=== PATIENT | male | born 1960 | race Caucasian/White ===

== ENCOUNTER 2019-02-04 04:22 | Emergency (ER) | payer OTHER ==
[~2019-02-04] VITALS: Ht 188 cm; Wt 111.3 kg
[2019-02-04] MEDS ORDERED: MOTR200T44 PO (04:44)
[2019-02-04] MEDS ORDERED: TYLE650T35 PO (04:44)
[2019-02-04] MEDS ORDERED: METOCLOPRAMIDE INJ 10MG/2ML VIAL (J2765) IV ONE (04:45)
[2019-02-04] MEDS ORDERED: NS 500 ML IV ONE (04:45)
[2019-02-04] MEDS ORDERED: MORPHINE 10 MG/ML 1ML VIAL (J2270) IV ONE (04:45)
[2019-02-04] MEDS ORDERED: MORPHINE 4 MG/ML 1ML VIAL/SYRINGE (J2270) IV ONE (05:45)
--- NOTE | 2019-02-04 06:13 | REP ---
Clinical: Trauma. Technique: Single AP view of the pelvis. Findings: Evidence of prior right hip replacement. Degenerative changes are appreciated. No acute fracture or dislocation. Impression: Degenerative changes without acute fracture or dislocation. Electronically Signed by Austin Wan MD 02/04/2019 06:04 A
[2019-02-04] MEDS ORDERED: NORCO 5/325MG TABLET (BULK FOR ED) PO ONE (06:15)
--- NOTE | 2019-02-04 06:15 | REP ---
Clinical: Trauma. Technique: AP, lateral, bilateral oblique views of the right knee. Findings: Evidence for prior replacement. Diffuse soft tissue swelling and suprapatellar effusion are identified. Subtle nondisplaced fracture involving the distal femoral metaphysis cannot be excluded. Impression: Swelling and effusion. Subtle nondisplaced femoral metaphyseal fracture cannot be excluded. Electronically Signed by Austin Wan MD 02/04/2019 06:06 A
[2019-02-04] MEDS ORDERED: ONDANSETRON 4 MG ORAL DISINTEGRATING TAB (Q0162 PER 1MG) As Ordered ONE (06:43)
[2019-02-04 06:45] VITALS: BP 147/82
[2019-02-04] MEDS ORDERED: ONDANSETRON 4 MG ORAL DISINTEGRATING TAB (Q0162 PER 1MG) PO ONE (06:45)
== END 2019-02-04 06:58 | disposition home or self-care (01) ==
LOC: EDBD 04:22 → M ED 04:22
DX: S72.424 Nondisplaced fracture of lateral condyle of right femur (principal); S72.434A Nondisplaced fracture of medial condyle of right femur, initial encounter for closed fracture; W01.0XXA Fall on same level from slipping, tripping and stumbling without subsequent striking against object, initial encounter; Y92.009 Unspecified place in unspecified non-institutional (private) residence as the place of occurrence of the external cause; M25.551 Pain in right hip; G89.29 Other chronic pain; I10 Essential (primary) hypertension; Z96.641 Presence of right artificial hip joint; Z98.890 Other specified postprocedural states
CPT/HCPCS: 72170; 73564; 96374; 96375; 99284; J2270; J2765; Q0162

== ENCOUNTER 2019-03-07 13:42 | Emergency (ER) | payer OTHER ==
[~2019-03-07] VITALS: Ht 188 cm; Wt 106.8 kg
[~2019-03-07 13:42] MED LIST: MOTR200T44 PO; TYLE650T35 PO
[2019-03-07 14:54] LABS: HEMATOCRIT 25.8 % (42.0-52.0); HEMOGLOBIN 7.9 g/dl (13.5-17.5); MEAN CORPUSCULAR HEMOGLOBIN 26.4 pg (27.0-33.0); MEAN CORPUSCULAR HGB CONC 30.6 g/dl (32.0-36.5); MEAN CORPUSCULAR VOLUME 86.3 fl (80.0-96.0); PLATELET COUNT, AUTOMATED 241 10^3/uL (150-450); RED BLOOD COUNT 2.99 10^6/uL (4.30-6.10); WHITE BLOOD COUNT 4.6 10^3/uL (4.0-10.0)
[2019-03-07 15:31] LABS: ALBUMIN 3.7 GM/DL (3.2-5.2); ALT/SGPT 60 U/L (12-78); BILIRUBIN,TOTAL 0.3 MG/DL (0.2-1.0); BLOOD UREA NITROGEN 23 MG/DL (7-18); CALCIUM LEVEL 8.9 MG/DL (8.5-10.1); CARBON DIOXIDE LEVEL 26 MEQ/L (21-32); CHLORIDE LEVEL 103 MEQ/L (98-107); CPK CREATINE PHOSPHOKINASE 131 U/L (39-308); ETHYL ALCOHOL (ETHANOL) 0.329 % (0.000-0.010); GLOMERULAR FILTRATION RATE > 60.0 (>56); GLUCOSE, FASTING 95 MG/DL (70-100); POTASSIUM SERUM 4.2 MEQ/L (3.5-5.1); SODIUM LEVEL 139 MEQ/L (136-145); TOTAL PROTEIN 6.7 GM/DL (6.4-8.2)
--- NOTE | 2019-03-07 15:52 | REP ---
RIGHT KNEE, FOUR VIEWS: Four views of the right knee performed. There is a nondisplaced fracture of the distal end of the femur just above the metallic prosthesis. This has not significantly changed. Proximal tibia and fibula are intact. There are no other new findings. Electronically Signed by Yaniv Davila MD 03/07/2019 06:20 P
[2019-03-07 16:31] LABS: FERRITIN 54 NG/ML (26-388); IRON (FE) 13 UG/DL (65-175); PERCENT SATURATION 3.1 % (19.7-50.0); TOTAL IRON BINDING CAPACITY 415 UG/DL (250-450)
[2019-03-07 16:38] LABS: VITAMIN B12 LEVEL 418 PG/ML (247-911)
[2019-03-07] MEDS ORDERED: OXAZEPAM 10 MG CAP PO ONE (20:15)
[2019-03-07 22:00] VITALS: BP 112/62
== END 2019-03-07 22:00 | disposition home or self-care (01) ==
LOC: M ED 13:42
DX: S72.401A Unspecified fracture of lower end of right femur, initial encounter for closed fracture (principal); X58.XXXA Exposure to other specified factors, initial encounter; Y92.89 Other specified places as the place of occurrence of the external cause; F10.220 Alcohol dependence with intoxication, uncomplicated; Z59.0 Homelessness; Z96.641 Presence of right artificial hip joint
CPT/HCPCS: 73564; 80053; 82550; 82607; 82728; 83550; 85027; 99284; G0480

== ENCOUNTER 2019-03-08 08:05 | Inpatient (IN) | payer OTHER ==
[~2019-03-08] VITALS: Ht 188 cm; Wt 110.8 kg
[2019-03-08] MEDS ORDERED: OXAZEPAM 15 MG CAP PO ONE (08:30)
[2019-03-08 08:51] LABS: HEMATOCRIT 23.9 % (42.0-52.0); HEMOGLOBIN 7.4 g/dl (13.5-17.5); MEAN CORPUSCULAR HEMOGLOBIN 26.4 pg (27.0-33.0); MEAN CORPUSCULAR VOLUME 85.4 fl (80.0-96.0); PLATELET COUNT, AUTOMATED 252 10^3/uL (150-450); WHITE BLOOD COUNT 6.3 10^3/uL (4.0-10.0)
[2019-03-08 08:57] LABS: INR 1.07
[2019-03-08 09:18] LABS: ALBUMIN 3.5 GM/DL (3.2-5.2); ALT/SGPT 55 U/L (12-78); BILIRUBIN,DIRECT 0.2 MG/DL (0.0-0.2); BILIRUBIN,TOTAL 0.7 MG/DL (0.2-1.0); BLOOD UREA NITROGEN 26 MG/DL (7-18); CALCIUM LEVEL 8.9 MG/DL (8.5-10.1); CARBON DIOXIDE LEVEL 23 MEQ/L (21-32); CHLORIDE LEVEL 102 MEQ/L (98-107); CREATININE FOR GFR 1.09 MG/DL (0.70-1.30); ETHYL ALCOHOL (ETHANOL) < 0.003 % (0.000-0.010); GLOMERULAR FILTRATION RATE > 60.0 (>56); GLUCOSE, FASTING 224 MG/DL (70-100); SODIUM LEVEL 137 MEQ/L (136-145); TOTAL PROTEIN 6.5 GM/DL (6.4-8.2)
[2019-03-08] MEDS ORDERED: PANTOPRAZOLE 40MG INJ (PROTONIX) (C9113) IV ONE (12:30)
[2019-03-08] MEDS ORDERED: LORazepam 2 MG TAB PO PRN (13:15)
[2019-03-08] MEDS ORDERED: GLUCAGON FOR INJ 1 MG VIAL (J1610) SC PRN (13:15)
[2019-03-08] MEDS ORDERED: GLUCOSE 4 GM CHEW TABLET PO PRN (13:15)
[2019-03-08] MEDS ORDERED: DEXTROSE 50% 50 ML SYRINGE IV PRN (13:15)
[2019-03-08] MEDS: PANTOPRAZOLE SODIUM 40 MG in D5W 50 ML IV SCH ×3 (13:27→21:30)
[2019-03-08 13:33] LABS: MAGNESIUM LEVEL 1.6 MG/DL (1.8-2.4); PHOSPHORUS LEVEL 2.9 MG/DL (2.5-4.9)
[2019-03-08 16:00] VITALS: BP 150/62
[2019-03-08 16:25] VITALS: BP 150/62
[2019-03-08] MEDS: FOLIC ACID 1 MG TAB PO SCH (16:46)
[2019-03-08] MEDS: THIAMINE 100 MG TAB PO SCH ×2 (16:46→20:06)
[2019-03-08] MEDS: MAG SULF 1GM/100ML (MAG RUN) 1 GM in APPROPRIATE DILUENT 1 EA IV SCH ×2 (16:47→17:59)
[2019-03-08] MEDS: MULTIVITAMINS/MINERALS THERAP 1 TAB PO SCH (16:47)
[2019-03-08 16:50] VITALS: BP 150/62
[2019-03-08] MEDS: HumaLOG INSULIN (NovoLOG) PER UNIT SC SCH ×2 (17:30→20:13)
[2019-03-08] MEDS ORDERED: GOLYTELY SOLN 4000 ML BTL PO ONE (18:00)
[2019-03-08] MEDS: OXAZEPAM 10 MG CAP PO SCH (18:00)
[2019-03-08 20:00] VITALS: BP 140/83
[2019-03-08] MEDS ORDERED: BISACODYL 5 MG TAB PO ONE (21:00)
--- NOTE | 2019-03-08 22:07 | HPE ---
DATE OF ADMISSION: 03/08/2019 PRIMARY CARE PROVIDER: None. HISTORY OF PRESENT ILLNESS: Mr. Mcdonnell is a 58-year-old male who has not seen a physician in over 30 years. He is a severe alcoholic and drinks 10 to 15 shots of vodka each day since the age of 19. He was most recently seen in the emergency room yesterday for severe right knee pain from a recent fall from when he was intoxicated. He does have a history of a hairline fracture in that knee, for which he follows with Dr. Wang and has a brace and is supposed to see him in the office again for a followup on 03/14/2019. In the emergency room yesterday, he was found to have a blood alcohol level of 0.33, and he was concerned that he was homeless. Patient and family services (PFS) at that point helped get him housing at the [facility]; however, he returned today to the emergency room with complaint of alcohol withdrawal symptoms. He states that he felt dizzy and shaky with nausea, weakness and racing heart as of today. He says that his last drink was yesterday morning. Blood alcohol level on today's emergency room visit is negligible and confirms this. He states that he has had delirium tremens in the past; however, has never been in withdrawal as severe as this. In the emergency room, of note, he was also found to have a hemoglobin of 7.9 yesterday, 7.4 today. He admits to dark, tarry stools over the past couple of months, which he did not followup with. We have no previous records. He was found to have positive fecal occult blood in the emergency room and positive orthostatics. As per emergency room staff, they have spoken with gastroenterology, Dr. Emerson, who will plan to scope him tomorrow to find a source of bleed. At the time of admission, the patient has thus far received one dose of Serax and is started on Protonix drip and continues to be tachycardic in the 110s to 120s but has no other complaints otherwise. PAST MEDICAL HISTORY: None. HOME MEDICATIONS: - ibuprofen - Tylenol as needed for pain from recent hip and knee surgeries SURGICAL HISTORY: Right hip repair times three in [facility], appendectomy, cholecystectomy, right prosthetic knee. ALLERGIES: None. SOCIAL HISTORY: Alcoholic with 10 to 15 shots of vodka per day since age 19, one pack per day cigarettes since age 20. Denies all other illicit substances. 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 FAMILY HISTORY: Grandmother had a myocardial infarction and lung cancer. Father and mother were healthy. Denies any family history of gastrointestinal illnesses. REVIEW OF SYSTEMS: Denies any recent fevers, chills, or weight loss. HEENT: Denies eye pain, ear pain, blurred vision, or headache. CARDIOVASCULAR: Admits to racing heart and palpitations from recent withdrawal. Denies any lower extremity swelling. PULMONARY: Denies any coughing, wheezing, shortness of breath. GASTROINTESTINAL: Admits to some nausea from recent withdrawal. Denies vomiting. Admits to black dark tarry stools for the past couple of months. Denies any constipation or diarrhea. SKIN: Denies any new rashes, bruises or lesions. MUSCULOSKELETAL: Admits to right knee and right hip pain from recent injuries and surgeries. Denies pain elsewhere. NEUROLOGIC: Denies any new paresthesias or loss of sensation. PSYCHIATRIC: Admits to anxiety and tremor from alcohol withdrawal. PHYSICAL EXAMINATION: VITAL SIGNS: Temperature 99.9, pulse 109, respirations 17, blood pressure 142/74, mean arterial pressure of 96, pulse oximetry 98% on room air. GENERAL: The patient is resting in bed, mildly anxious. Alert and oriented times three. Fully conversant. HEENT: Normocephalic, atraumatic. Extraocular muscles intact. Pupils are equal, round and reactive to light. Pale conjunctivae. Dry mucous membranes. NECK: Supple. No jugular venous distention (JVD) and no adenopathy. CARDIAC: Regular rhythm. Rate is tachycardic in the 110s to 120s. In sinus on telemetry. Normal S1, S2 without any murmurs. LUNGS: Clear to auscultation bilaterally with equal chest rise. No wheezing, rhonchi or rales. ABDOMEN: Soft, nontender, nondistended with positive bowel sounds. No appreciable hepatosplenomegaly. No appreciable spider nevi or palmar erythema. SKIN: No visible lesions or ulcerations. No jaundice. MUSCULOSKELETAL: Strength 5/5 throughout bilateral upper extremities. The right lower extremity is in a brace from his recent fracture, for which he is following with orthopedics. NEUROLOGIC: He has bilateral asterixis. Otherwise, without any focal deficits. No loss of motor sensation. PSYCHIATRIC: He is mildly anxious but otherwise fully communicative. LABORATORIES: WBC 6.3, hemoglobin and hematocrit 7.4/23.9, platelets 252. Sodium and potassium 137 and 4. Chloride and bicarbonate 102 and 23. BUN and creatinine 26 and 1.09. Magnesium 1.6. AST and ALT 65 and 55. Alkaline phosphatase 98. PT/INR normal. Blood alcohol level is less than 0.003. No imaging. IMPRESSION AND PLAN: This is a 58-year-old male, alcoholic, who presents to the emergency room with symptoms of alcohol withdrawal. 1. Alcohol withdrawal. The patient has asterixis on examination and is tachycardic in the 120s. Last drink was five to six shots of vodka yesterday morning on 03/07/2019. His blood alcohol level confirms this. Continue on Clinical [place] Withdrawal Assessment (CIWA) protocol and baseline Serax for today, which we will taper down as he improves. He denies any previous history of withdrawal seizures but does have a history of delirium tremens in the past, however, he states that he has never been this bad. He has been counseled on alcohol cessation and will be placed on multivitamin, folate, thiamine. 2. Transaminitis. AST is 65 and ALT 55 on admission, likely related to the above. We will continue to trend tomorrow. May also be due to the significant amount of Tylenol that he has been taking recently for his pain. Otherwise, his albumin and coag panel are normal. 3. Acute blood loss anemia. Hemoglobin has dropped from 7.9 yesterday to 7.4 today. The patient reports melanotic stools over the past couple of months. Given his history of alcohol abuse, there is concern for possible varices. Given that he has been taking ibuprofen around the clock over the past couple of days for his knee and hip pain, differential also includes peptic ulcer disease. GI has been consulted, appreciate their input. Plan is for scope possibly tomorrow. The patient has consented for blood transfusion, which he has received in the past as well. He will currently get 2 units transfused and trend hemoglobin and hematocrit every 6 hours, transfuse as needed to maintain a hemoglobin above 8. 4. Social living situation. The patient is homeless. Patient and family services (PFS) helped him find temporary placement at the [facility]. Patient and family services has been consulted again to assist with more long-term placement. 5. Hypomagnesemia. We will supplement. 6. Positive orthostasis. The patient reportedly was positive in the emergency room and appears clinically dry on examination. We will continue with IV fluid hydration. He admits to having decreased oral intake over the past couple of days. Continue monitoring with volume resuscitation. 7. Deep vein thrombosis (DVT) prophylaxis. Thromboembolic compression stockings (TEDS), SCDs. Hold anticoagulation given active bleed. DISPOSITION: We will admit to the hospitalist service, awaiting GI consultation. The patient will require establishment with a primary care provider on discharge. My faculty preceptor for this patient encounter was physically present during the encounter and was fully available. All aspects of the patient interview, examination, medical decision making process, and medical care plan development were reviewed and approved by the faculty preceptor. The faculty preceptor is aware and concurs with the plan as stated in the body of this note and will attest to such by his/her co-signature. GUS
[2019-03-08] MEDS: traMADol 50 MG TAB PO PRN (23:01)
--- NOTE | 2019-03-08 23:03 | CR.PDOC ---
General Date of Consultation: Mar 08, 2019 Referring Provider: Elio Madrigal MD Attending Physician: CHRISTOPHER NAGEL MD Consultation Primary physician/ hospitalist: Dr. Madrigal. Reason for consult: symptomatic anemia with dark stools. HPI: 58 year old male patient with right knee fracture, ( taking Ibuprofen regularly). chronic heavy alcohol use, presented to ER for complaints of withdr awal symptoms and also having lightheadedness and feeling weak. Patient is noted with severe anemia on labs and GI was consulted for the same. Patient reports having dark formed stools over the last few weeks, but denies any bight red bleeding or diarrheal stools. Patient also reports feling nauseous but denies any other GI symptoms. Patient reports his last bowel movement was today morning. Pertinent negative GI symptoms: Patient denies vomiting, diarrhea, abdominal pain, loss of appetite, early satiety or unintentional weight loss. No history of hematemesis, hematochezia. Patient reports regular bowel movements. Review of Systems: GI: as stated above CVS: No chest pain, No palpitations, No leg swelling. RS: No Shortness of breath, No Wheezing, no cough CUSTOMER SUPPORT REPRESENTATIVE: No dizziness, No motor weakness, No sensory problems Hematology: No bruising, No gum bleeding, Musculoskeletal: No joint pain, ambulating well. Skin: No rash : No hematuria, No burning sensation of the urine ENT: No ear discharge/ pain, No dysphagia. Eyes: No photophobia. Home medications: reviewed. Antithrombotic agents - None. Medical h/o: As above. Surgical h/o: Appendectomy and cholecystectomy in past. Social h/o: Alcohol- Heavy alcohol use with upto 10 - 15 drinks daily and for past few days he decreased to 6 drinks per day and started noticing tremors , tobacco- Denies , IVDA/ drugs- Denies.. Family h/o of GI cancers - Denies any cancer in family but reports his father had colon polyps. Prior Endoscopies: None. Prior GI evaluation: None in past. Exam: Vitals: reviewed General: Alert and oriented x 3, not in distress, noted mild to moderate tremulousness. HEENT: NO pallor, no icterus. Normal oropharynx, NO cervical lymph nodes. Chest: symmetric with bilateral clear air entry, CVS: S1, S2 heard, normal, no murmurs . Abdomen: non-distended, no surgical scars, soft, non-tender, no palpable masses, normal bowel sounds heard. Rectal exam: Patient refused / Deferred at this time in view of scheduled colonoscopy. Extremities: no pedal edema, right leg brace noted. pulses palpable. CUSTOMER SUPPORT REPRESENTATIVE: no focal motor or sensory deficits. Moves all extremities Skin: no rash. Labs: reviewed. Impression: - Symptomatic anemia with dark stools, history of NSAIDs use and heavy alcohol use, but no vomiting of blood, no diarrheal stools, no abdominal pain -- DDx-- LIkely PUD vs AVM vs Colon polyps vs less likely variceal bleeding. -- History of heavy alcohol use with tremulousness -- Monitor for alcohol withdrawal. Recommendations: - Patient educated about the test results, possible differential diagnoses and All questions answered. - Monitor H/H and transfuse as needed to keep hemoglobin around 8gm/dL. - Give IV Pantoprazole ( 40 mg twice daily) for now. - Management for Alcohol withdrawal as per primary team. - Clear liquid diet. - Patient is educated about the need for EGD and Colonoscopy for further evaluation. - The procedures, indications, risks (bleeding, perforation, infection, hy potension, respiratory depression, allergy, need for endotracheal intubation, surgery, colostomy, cardiac arrest, even ), benefits, limitations (e.g., missing a lesion), and all other alternatives (including no intervention) were explained to the patient who understood and agreed for the procedures. Patient also educated that if he develops severe symptoms of alcohol withdrawal then his procedures can be cancelled. - Bowel prep with 4 liters of golytely - to be started at 5PM today and complete by 7 AM tomorrow. - Dulcolax 20 mg at 9 PM. - Clear liquid diet till 7 AM and then NPO for procedure. Plan of care discussed with patient and primary team. Patient verbalized understanding and agreed with the plan. Laboratory Data CBC/BMP Laboratory Tests 03/08/19 08:31 Allergies Coded Allergies: No Known Allergies (Unverified , 02/04/19) Home Medications Scheduled PRN Acetaminophen (Tylenol Arthritis) 650 Mg Tab, 650 MG PO Q4H PRN for PAIN, (Reported) Ibuprofen (Motrin Ib) 200 Mg Tab, 800 MG PO Q6H PRN for PAIN, (Reported) CHRISTOPHER NAGEL MD Mar 08, 2019 23:03
[2019-03-09] VITALS (15 sets, daily range): BP systolic 108–156; BP diastolic 58–87
[2019-03-09] MEDS: D5W/0.45% SODIUM CHLORIDE 1,000 ML IV SCH ×3 (00:01→16:06)
[2019-03-09] MEDS: OXAZEPAM 10 MG CAP PO SCH ×5 (00:06→23:51)
[2019-03-09 02:29] LABS: HEMATOCRIT 27.4 % (42.0-52.0); HEMOGLOBIN 8.5 g/dl (13.5-17.5)
[2019-03-09] MEDS: PANTOPRAZOLE SODIUM 40 MG in D5W 50 ML IV SCH ×4 (02:30→16:05)
[2019-03-09 06:43] LABS: HEMATOCRIT 25.3 % (42.0-52.0); MEAN CORPUSCULAR HEMOGLOBIN 26.5 pg (27.0-33.0); MEAN CORPUSCULAR HGB CONC 31.6 g/dl (32.0-36.5); MEAN CORPUSCULAR VOLUME 83.8 fl (80.0-96.0); PLATELET COUNT, AUTOMATED 203 10^3/uL (150-450); RED BLOOD COUNT 3.02 10^6/uL (4.30-6.10); WHITE BLOOD COUNT 5.2 10^3/uL (4.0-10.0)
[2019-03-09 07:14] LABS: ALBUMIN 3.2 GM/DL (3.2-5.2); ALT/SGPT 73 U/L (12-78); BILIRUBIN,TOTAL 0.8 MG/DL (0.2-1.0); BLOOD UREA NITROGEN 15 MG/DL (7-18); CALCIUM LEVEL 8.4 MG/DL (8.5-10.1); CARBON DIOXIDE LEVEL 28 MEQ/L (21-32); CHLORIDE LEVEL 101 MEQ/L (98-107); CREATININE FOR GFR 0.89 MG/DL (0.70-1.30); GLOMERULAR FILTRATION RATE > 60.0 (>56); GLUCOSE, FASTING 136 MG/DL (70-100); MAGNESIUM LEVEL 1.9 MG/DL (1.8-2.4); POTASSIUM SERUM 3.3 MEQ/L (3.5-5.1); SODIUM LEVEL 137 MEQ/L (136-145); TOTAL PROTEIN 6.5 GM/DL (6.4-8.2)
[2019-03-09] MEDS: HumaLOG INSULIN (NovoLOG) PER UNIT SC SCH ×4 (07:30→20:19)
[2019-03-09] MEDS: FOLIC ACID 1 MG TAB PO SCH (09:51)
[2019-03-09] MEDS: THIAMINE 100 MG TAB PO SCH ×2 (09:51→20:18)
[2019-03-09] MEDS: MULTIVITAMINS/MINERALS THERAP 1 TAB PO SCH (09:51)
[2019-03-09] MEDS: KCL 10MEQ/100ML SWI (KRUN) 10 MEQ in APPROPRIATE DILUENT 1 EA IV SCH ×3 (09:52→16:18)
--- NOTE | 2019-03-09 11:03 | IPN ---
DATE: 03/09/2019 SUBJECTIVE: The patient is examined at bedside. Has no new complaints. No reported events overnight. He feels better today than he did when he came in. He feels less anxious. Heart rate is no longer tachycardic. No events on telemetry. He states he had multiple bowel movements overnight with bowel regimen as he is scheduled to undergo an esophagogastroduodenoscopy and colonoscopy today with Dr. Emerson. He states his initial stools were dark brown but now have cleared. Denies any acute bleeding currently in his stool. Otherwise, he is doing well. He underwent transfusion of two units of blood yesterday, which he tolerated well. PHYSICAL EXAMINATION: VITALS: Temperature 98.4, pulse 76, respirations 19, blood pressure 118/50, map 98, pulse ox 90% on room air. GENERAL: Resting comfortably in bed. No acute distress. Alert and oriented times three, pleasantly conversant. HEENT: Normocephalic, atraumatic. Extraocular muscles intact. Pupils equal, round and reactive to light. Dry mucous membranes. NECK: Supple without any jugular venous distention (JVD). CARDIAC: Regular rate and rhythm. Normal sinus rhythm on telemetry. Normal S1, S2 without murmurs. LUNGS: Clear to auscultation bilaterally. No wheezing, rhonchi or rales. ABDOMEN: Soft, nontender, nondistended. Hyperactive bowel sounds. SKIN: No visible lesions or ulcerations. No jaundice. MUSCULOSKELETAL: Able to move all extremities. Right lower leg is in a brace from his recent fracture. NEURO: His hand tremors are improved from admission. Still present today, otherwise stable without any focal deficit. PSYCH: Normal mood and affect. No longer anxious as he was on admission. LABS: WBC 5.2, hemoglobin and hematocrit 8 and 25.3, platelets 203. Sodium 137, potassium 3.3, BUN and creatinine 15 and 0.89. AST 91, ALT 73. Stool for occult blood is heme positive IMPRESSION AND PLAN: This is a 58-year-old alcoholic male who presented to the emergency room with alcohol withdrawal symptoms and found to be severe anemic with melanotic stools over the past couple of weeks. 1. Alcoholic withdrawal: Patient is improving and no longer as tremulous and tachycardic as he was on admission. Will continue to taper his Serax and continue seizure protocol. His last drink was on the morning of 03/07/2019 when he had around six shots of vodka. Continue closely monitoring. Continue multivitamin and folate, and thiamine. 2. Transaminitis: Persists until this morning. May be secondary to his heavy alcohol use versus his heavy Tylenol use for his right knee pain. Will continue to trend. Patient has been updated regarding labs and the concern for underlying liver disease. Will further work this up if it remains elevated. Of note: His albumin and coag panel were normal. 3. Acute blood loss anemia: He initially presented with hemoglobin of 7.4 which responded well to two units of blood, which he received on admission. Repeat hemoglobin and hematocrit revealed his hemoglobin is around 8 with a mild drop this morning from 8.5 to 8.0. Will continue to trend his hemoglobin and hematocrit every 6 hours and transfused as needed to maintain around 8. He is scheduled for an EGD and colonoscopy today. Differential includes peptic ulcer disease from heavy nonsteroidal anti-inflammatory drug (NSAID) use for his right knee pain as well as possible varices versus arteriovenous malformation versus polyp. 4. Social living situation: Patient is homeless. Was recently set up by patient family services ([facility]) to temporarily remain at [facility]. [facility] is currently following. Hopefully we can find him longer-term living for him. 5. Hypomagnesemia: Resolved with supplementation. 6. Hypokalemia: Supplemented. Patient is asymptomatic. Continue monitoring. 7. Positive orthostatics: He appears dry on exam and was reported positive for orthostatics in the emergency room and will continue with IV hydration. 8. Hyperglycemia: The patient's blood sugars are noted to be high 100s to 200s. He has not followed with a primary care provider in years. A1c is currently pending. Currently on a sliding scale. 9. Deep venous thrombosis (DVT) prophylaxis: Mechanical. Hold anticoagulation due to possible acute bleed. DISPOSITION: Pending clinical improvement. Scopes today. My faculty preceptor for this patient encounter was physically present during the encounter and was fully available. All aspects of the patient interview, examination, medical decision making process, and medical care plan development were reviewed and approved by the faculty preceptor. The faculty preceptor is aware and concurs with the plan as stated in the body of this note and will attest to such by his/her co-signature. GUS
[2019-03-09 11:59] LABS: HEMATOCRIT 26.6 % (42.0-52.0); HEMOGLOBIN 8.4 g/dl (13.5-17.5)
[2019-03-09] MEDS ORDERED: PROPOFOL 200 MG/20 ML VIAL As Ordered ONE ×2 (13:05→14:41)
[2019-03-09] MEDS ORDERED: LIDOCAINE 2% INJ 100 MG/5 ML SDV (FOR ANES.) As Ordered ONE (13:05)
[2019-03-09] MEDS ORDERED: fentaNYL 100 MCG/2 ML INJECTION (J3010) As Ordered ONE (13:06)
[2019-03-09] MEDS ORDERED: MIDAZOLAM INJ 2 MG/2 ML VIAL (J2250) As Ordered ONE (14:21)
--- NOTE | 2019-03-09 15:12 | ROOR ---
Patient Name: Sergey Mcdonnell Procedure Date: 03/09/2019 2:09 PM Date of : 1960 Age: 58 Room: [facility] Gender: Male Note Status: Finalized Procedure: Upper GI endoscopy Indications: Acute post hemorrhagic anemia, Iron deficiency anemia Providers: Jerod Emerson MD Referring MD: 2. Inpatient 2. Inpatient Requesting Provider: Medicines: Monitored Anesthesia Care Complications: No immediate complications. Procedure: Pre-Anesthesia Assessment: - Prior to the procedure, a History and Physical was performed, and patient medications and allergies were reviewed. The patient is competent. The risks and benefits of the procedure and the sedation options and risks were discussed with the patient. All questions were answered and informed consent was obtained. Patient identification and proposed procedure were verified by the physician, the nurse and the anesthesiologist in the procedure room. Mental Status Examination: alert and oriented. Airway Examination: normal oropharyngeal airway and neck mobility. Respiratory Examination: clear to auscultation. CV Examination: normal. Prophylactic Antibiotics: The patient does not require prophylactic antibiotics. Prior Anticoagulants: The patient has taken no previous anticoagulant or antiplatelet agents. ASA Grade Assessment: III - A patient with severe systemic disease. After reviewing the risks and benefits, the patient was deemed in satisfactory condition to undergo the procedure. The anesthesia plan was to use monitored anesthesia care (MAC). Immediately prior to administration of medications, the patient was re-assessed for adequacy to receive sedatives. The heart rate, respiratory rate, oxygen saturations, blood pressure, adequacy of pulmonary ventilation, and response to care were monitored throughout the procedure. The physical status of the patient was re-assessed after the procedure. The Endoscope was introduced through the mouth, and advanced to the second part of duodenum. The upper GI endoscopy was accomplished without difficulty. The patient tolerated the procedure well. Findings: The Z-line was irregular and was found 40 cm from the incisors. A small hiatal hernia was present. Scattered severe inflammation characterized by erosions, erythema, friability, granularity and shallow ulcerations was found in the gastric body, in the gastric antrum and at the pylorus. Biopsies were taken with a cold forceps for Helicobacter pylori testing. Verification of patient identification for the specimen was done by the physician and nurse using the patient's name, date and medical record number. Estimated blood loss was minimal. Two non-bleeding cratered and linear duodenal ulcers with a clean ulcer base (Vincenzo Class III) were found in the duodenal bulb. The largest lesion was 10 mm in largest dimension. Patchy mild inflammation characterized by congestion (edema), friability and granularity was found in the second portion of the duodenum. Impression: - Z-line irregular, 40 cm from the incisors. - Small hiatal hernia. - Gastritis. Biopsied. - Multiple non-bleeding duodenal ulcers with a clean ulcer base (Vincenzo Class III). - Duodenitis. Recommendation: - Patient has a contact number available for emergencies. The signs and symptoms of potential delayed complications were discussed with the patient. Return to normal activities tomorrow. Written discharge instructions were provided to the patient. - Advance diet as tolerated today. - Continue present medications. - Use Protonix (pantoprazole) 40 mg PO daily - to be taken bistro server 1/2 hour before breakfast for 8 weeks. - Await pathology results. - If Biopsy shows H. pylori will need therapy with antibiotic course.. - No ibuprofen, naproxen, or other non-steroidal anti-inflammatory drugs. - Return to primary care physician. Jerod Emerson MD Jerod Emerson MD 03/09/2019 3:11:38 PM Electronically signed by Jerod Emerson MD Number of Addenda: 0 Note Initiated On: 03/09/2019 2:09 PM Estimated Blood Loss: Estimated blood loss was minimal.
--- NOTE | 2019-03-09 15:15 | ROOR ---
Patient Name: Sergey Mcdonnell Procedure Date: 03/09/2019 2:10 PM Date of : 1960 Age: 58 Room: [facility] Gender: Male Note Status: Finalized Procedure: Colonoscopy Indications: Melena, Iron deficiency anemia secondary to chronic blood loss, Iron deficiency anemia Providers: Jerod Emerson MD Referring MD: 2. Inpatient 2. Inpatient Requesting Provider: Medicines: Monitored Anesthesia Care Complications: No immediate complications. Procedure: Pre-Anesthesia Assessment: - Prior to the procedure, a History and Physical was performed, and patient medications and allergies were reviewed. The patient is competent. The risks and benefits of the procedure and the sedation options and risks were discussed with the patient. All questions were answered and informed consent was obtained. Patient identification and proposed procedure were verified by the physician, the nurse and the anesthesiologist in the procedure room. Mental Status Examination: alert and oriented. Airway Examination: normal oropharyngeal airway and neck mobility. Respiratory Examination: clear to auscultation. CV Examination: normal. Prophylactic Antibiotics: The patient does not require prophylactic antibiotics. Prior Anticoagulants: The patient has taken no previous anticoagulant or antiplatelet agents. ASA Grade Assessment: III - A patient with severe systemic disease. After reviewing the risks and benefits, the patient was deemed in satisfactory condition to undergo the procedure. The anesthesia plan was to use monitored anesthesia care (MAC). Immediately prior to administration of medications, the patient was re-assessed for adequacy to receive sedatives. The heart rate, respiratory rate, oxygen saturations, blood pressure, adequacy of pulmonary ventilation, and response to care were monitored throughout the procedure. The physical status of the patient was re-assessed after the procedure. The Colonoscope was introduced through the anus and advanced to the terminal ileum, with identification of the appendiceal orifice and IC valve. The colonoscopy was performed without difficulty. The patient tolerated the procedure well. The quality of the bowel preparation was good. The ileocecal valve, appendiceal orifice, and rectum were photographed. Scope insertion time was 5 minutes. Scope withdrawal time was 8 minutes. The total duration of the procedure was 14 minutes. Findings: The perianal and digital rectal examinations were normal. Multiple medium-mouthed diverticula were found from sigmoid to descending colon. There was no evidence of diverticular bleeding. External and internal hemorrhoids were found during retroflexion. The hemorrhoids were medium-sized. There is no endoscopic evidence of bleeding or ulcerations in the entire colon. Impression: - Moderate diverticulosis from sigmoid to descending colon. There was no evidence of diverticular bleeding. - External and internal hemorrhoids. - No specimens collected. Recommendation: - Patient has a contact number available for emergencies. The signs and symptoms of potential delayed complications were discussed with the patient. Return to normal activities tomorrow. Written discharge instructions were provided to the patient. - High fiber diet. - Continue present medications. - Repeat colonoscopy in 5-10 years for screening purposes. - Return to primary care physician. Jerod Emerson MD Jerod Emerson MD 03/09/2019 3:14:57 PM Electronically signed by Jerod Emerson MD Number of Addenda: 0 Note Initiated On: 03/09/2019 2:10 PM Estimated Blood Loss: Estimated blood loss: none.
[2019-03-09] MEDS ORDERED: KCL 10MEQ IN STERILE WATER 100ML As Ordered ONE (16:15)
[2019-03-09] MEDS: traMADol 50 MG TAB PO PRN ×2 (17:39→23:51)
[2019-03-09 18:02] LABS: HEMATOCRIT 29.1 % (42.0-52.0); HEMOGLOBIN 9.1 g/dl (13.5-17.5)
[2019-03-09] MEDS ORDERED: SLF 3 ML SYR IV PRN (18:30)
[2019-03-09] MEDS: SLF 3 ML SYR IV SCH (20:18)
[2019-03-09] MEDS: ACETAMINOPHEN TAB 650MG DOSE (2X325MG) PO PRN (22:21)
[2019-03-10] VITALS (11 sets, daily range): BP systolic 125–146; BP diastolic 68–83
[2019-03-10 00:12] LABS: HEMATOCRIT 25.2 % (42.0-52.0); HEMOGLOBIN 7.8 g/dl (13.5-17.5)
[2019-03-10] MEDS: ACETAMINOPHEN TAB 650MG DOSE (2X325MG) PO PRN ×2 (03:39→08:56)
[2019-03-10 05:28] LABS: HEMATOCRIT 28.2 % (42.0-52.0); HEMOGLOBIN 8.6 g/dl (13.5-17.5); MEAN CORPUSCULAR HEMOGLOBIN 26.2 pg (27.0-33.0); MEAN CORPUSCULAR HGB CONC 30.5 g/dl (32.0-36.5); PLATELET COUNT, AUTOMATED 209 10^3/uL (150-450); RED BLOOD COUNT 3.28 10^6/uL (4.30-6.10); WHITE BLOOD COUNT 5.4 10^3/uL (4.0-10.0)
[2019-03-10 05:56] LABS: ALT/SGPT 91 U/L (12-78); BLOOD UREA NITROGEN 13 MG/DL (7-18); CALCIUM LEVEL 8.4 MG/DL (8.5-10.1); CARBON DIOXIDE LEVEL 26 MEQ/L (21-32); CHLORIDE LEVEL 106 MEQ/L (98-107); CREATININE FOR GFR 0.83 MG/DL (0.70-1.30); GLOMERULAR FILTRATION RATE > 60.0 (>56); GLUCOSE, FASTING 102 MG/DL (70-100); POTASSIUM SERUM 3.7 MEQ/L (3.5-5.1); SODIUM LEVEL 139 MEQ/L (136-145)
[2019-03-10 05:57] LABS: ALBUMIN 3.1 GM/DL (3.2-5.2); BILIRUBIN,TOTAL 0.4 MG/DL (0.2-1.0); TOTAL PROTEIN 6.4 GM/DL (6.4-8.2)
[2019-03-10] MEDS: OXAZEPAM 10 MG CAP PO SCH ×3 (06:15→18:07)
[2019-03-10] MEDS: SLF 3 ML SYR IV SCH ×3 (06:15→20:11)
[2019-03-10] MEDS: traMADol 50 MG TAB PO PRN ×2 (06:15→23:05)
[2019-03-10 06:50] LABS: HEMOGLOBIN A1c 5.6 %
[2019-03-10] MEDS: HumaLOG INSULIN (NovoLOG) PER UNIT SC SCH ×4 (07:30→20:11)
[2019-03-10] MEDS: THIAMINE 100 MG TAB PO SCH ×2 (08:45→20:11)
[2019-03-10] MEDS: FOLIC ACID 1 MG TAB PO SCH (08:45)
[2019-03-10] MEDS: MULTIVITAMINS/MINERALS THERAP 1 TAB PO SCH (08:45)
[2019-03-10] MEDS: PANTOPRAZOLE 40MG TAB (PROTONIX) PO SCH (08:45)
--- NOTE | 2019-03-10 17:48 | IPN ---
DATE: 03/10/2019 SUBJECTIVE: The patient examined at bedside. No events overnight. He has no complaints today and underwent an esophagogastroduodenoscopy (EGD) and colonoscopy yesterday which revealed gastritis, multiple non-bleeding duodenal ulcers, and duodenitis with moderate diverticulosis and external and internal hemorrhoids. He has been tolerating his diet well this morning and has no other complaints. No fevers, chills, anxiety, palpitations, lightheadedness, dizziness, or black tarry stools or bright red stools. PHYSICAL EXAMINATION: VITAL SIGNS: Temperature 97.1, pulse 59, respiratory rate 20, blood pressure 144/69 with mean arterial pressure (MAP) of 94, pulse oximetry 97% on room air. GENERAL: Resting comfortably in his chair, in no acute distress, alert and oriented times three, fully conversant. HEENT: Normocephalic, atraumatic. Extraocular muscles intact. Pupils equal, round, and reactive to light and accommodation. Moist mucous membranes. NECK: Supple without jugular venous distention (JVD). CARDIAC: Regular rate and rhythm, normal sinus rhythm on telemetry, normal S1, S2 without murmur. LUNGS: Clear bilaterally without wheezing, rhonchi or rales. ABDOMEN: Soft, nontender, nondistended with positive bowel sounds. SKIN: No visible lesions or ulcerations. No jaundice. MUSCULOSKELETAL: Able to move all extremities. Right lower leg is out of the brace today while he is resting in the chair. Right knee is visibly swollen compared to the left but otherwise without any lesions. NEUROLOGIC: Hand tremors persist today but overall have improved from admission, otherwise stable without focal deficits. PSYCHIATRIC: Normal mood and affect. No longer anxious. LABORATORY DATA: WBC 5.4, hemoglobin and hematocrit 8.6 and 28.2, platelets 209. Electrolytes normal. BUN and creatinine 13 and 0.83. AST and ALT 81 and 91. GI biopsies from EGD and colonoscopy yesterday are pending. IMPRESSION AND PLAN: A 58-year-old alcoholic male who presented to the emergency room (ER) in alcoholic withdrawal and found to be severely anemic with melanotic stools over the past few weeks. 1. Alcohol withdrawal. The patient's last drink was on the morning of 03/07/2019 with 6-8 vodka shots. He has been stable throughout his stay. Heart rate has normalized. No events on telemetry. Continue tapering down his Serax and continue on Clinical [place] Withdrawal Assessment (CIWA) protocol. Continue multivitamin, folate, and thiamin. Otherwise, he is stable. He has been counseled on alcohol abstinence. Consider starting the patient on acamprosate on discharge to assist with alcohol cessation. 2. Acute blood loss anemia. His hemoglobin and hematocrit remains stable with a hemoglobin of 8.6 this morning. He is status post two units packed red blood cells (PRBCs) transfused thus far. He has not had anymore melanotic stools during his stay here. He underwent esophagogastroduodenoscopy (EGD) and colonoscopy yesterday revealing gastritis and multiple non-bleeding duodenal ulcers as well as duodenitis. Colonoscopy revealed moderate diverticulosis with external and internal hemorrhoids. There are multiple sources of his possible slow bleed. Transfuse as needed to maintain hemoglobin above 8. He has been counseled on avoiding nonsteroidal antiinflammatory drugs (NSAIDs). 3. Transaminitis. It may be secondary to his underlying alcoholism. He may have some underlying liver disease. However, we have no imaging currently. The patient has been updated regarding results and will need to followup outpatient to further assess his liver injury. 4. Hypokalemia, resolved with supplementation, likely secondary to his poor oral intake and heavy alcoholism. 5. Social living situation. The patient is homeless. He was setup by patient and family services ([facility]) temporarily at [facility] prior to admission. PFS is consulted to assist with obtaining a more stable living environment. 6. Nondisplaced fracture of the distal femur end noted on x-ray of 03/07/2019. He normally follows with Dr. Wang and has his right knee in a brace and is scheduled for followup with orthopedics on 03/14/2019 which is this upcoming Thursday. Continue brace and pain control. He did not pass his home safety evaluation today. Continue with physical therapy (PT) and occupational therapy (OT). Discussion for possible rehabilitation, acute versus subacute. 7. Deep vein thrombosis (DVT) prophylaxis. Mechanical. DISPOSITION: Pending physical therapy and occupational therapy. My faculty preceptor for this patient encounter was physically present during the encounter and was fully available. All aspects of the patient interview, examination, medical decision making process, and medical care plan development were reviewed and approved by the faculty preceptor. The faculty preceptor is aware and concurs with the plan as stated in the body of this note and will attest to such by his/her co-signature.
[2019-03-11] MEDS ORDERED: OXAZEPAM 10 MG CAP PO SCH
[2019-03-11] MEDS: ACETAMINOPHEN TAB 650MG DOSE (2X325MG) PO PRN ×2 (00:16→22:31)
[2019-03-11 06:00] VITALS: BP 126/56
[2019-03-11] MEDS: traMADol 50 MG TAB PO PRN ×2 (06:21→22:31)
[2019-03-11] MEDS: SLF 3 ML SYR IV SCH ×3 (06:22→20:41)
[2019-03-11 07:01] VITALS: BP 126/56
[2019-03-11] MEDS: HumaLOG INSULIN (NovoLOG) PER UNIT SC SCH ×4 (07:30→20:41)
[2019-03-11] MEDS: FOLIC ACID 1 MG TAB PO SCH (08:17)
[2019-03-11] MEDS: PANTOPRAZOLE 40MG TAB (PROTONIX) PO SCH (08:17)
[2019-03-11] MEDS: MULTIVITAMINS/MINERALS THERAP 1 TAB PO SCH (08:17)
[2019-03-11 14:00] VITALS: BP 120/73
--- NOTE | 2019-03-11 15:51 | IPN ---
DATE OF SERVICE: 03/11/2019 SUBJECTIVE: Patient examined at bedside. No reported events overnight. He is frustrated about morning labs and has refused for today and is requesting labs to be every other day. Otherwise, he is doing well, tolerating diet well. Complaints of continued right knee pain from his recent surgery. No reported events overnight. Continues to participate in physical therapy (PT), occupational therapy (OT). PHYSICAL EXAMINATION: VITAL SIGNS: Temperature 98.3, pulse 84, respirations 19, blood pressure 126/56 with mean arterial pressure (MAP) of 79, pulse oximetry 98% on room air. GENERAL: Resting comfortably in bed, in no acute distress, alert and oriented times three, fully conversant. HEENT: Normocephalic, atraumatic. Extraocular muscles intact. Moist mucous membranes. NECK: Supple without jugular venous distention (JVD). CARDIAC: Regular rate and rhythm without any murmurs. Normal S1 and S2. LUNGS: Clear bilaterally without wheezing, rhonchi or rales. ABDOMEN: Soft, nontender, nondistended. Positive bowel sounds. SKIN: No visible lesions or ulcerations. No jaundice. MUSCULOSKELETAL: Able to move all extremities. Right knee visibly swollen compared to left from his recent surgery. NEUROLOGIC: Hand tremors persist but overall improved from admission, stable without any focal deficits. PSYCHIATRIC: Normal mood and affect. LABORATORIES: Patient refused this morning labs. Gastrointestinal (GI) pathology results from his stomach biopsy reveal reactive changes without any inflammation or Helicobacter (H) pylori. ASSESSMENT AND PLAN: 58-year-old, alcoholic male presented to the emergency room (ER) for alcoholic withdrawal and found to be severely anemic with melanotic stools over the past few weeks. 1. Alcohol withdrawal. Patient has been stable and is now 4 days out from his last drink, which was on the morning of 03/07/2019 when he had 6-8 vodka shots. Heart rate under control and is otherwise stable. We will discontinue Serax today as he has been tapered down. Continue clinical institute withdrawal assessment for alcohol (CIWA) protocol. He has not required his as needed Ativan at all thus far. Continue monitoring. Continue folate, multivitamin, thiamine. He is counseled on alcohol abstinence. Consider starting him on acamprosate on discharge to assist with alcohol cessation. 2. Acute blood loss anemia with underlying melanotic stools. His hemoglobin and hematocrit remain stable, but he refused labs this morning. There is no overt signs of bleeding. He is status post 2 units of packed red blood cells (PRBC) transfused this admission. Esophagogastroduodenoscopy (EGD) and colonoscopy noted. Continue oral Protonix and avoid nonsteroidal anti-inflammatory drugs (NSAIDs). 4. Transaminitis likely secondary to underlying alcoholism with some possible liver disease requiring outpatient followup. He refused labs. We will reassess tomorrow. 5. Social living situation. He is homeless and was previously setup by patient and family services (PFS) at the [facility] prior to this admission. PFS consulted to help assist a more stable living situation. 3. Nondisplaced fracture of distal femur noted on x-ray of 03/07/2019. He normally follows with Dr. Wang for his right knee, which is to be in a brace per the patient, and is scheduled to followup with him in the clinic 03/14/2019 on this upcoming Thursday. Continue pain control. Continue with physical therapy (PT) and occupational therapy (OT). Possible acute rehabilitation versus subacute rehabilitation. 4. Deep venous thrombosis (DVT) prophylaxis. Mechanical and encourage ambulation. DISPOSITION: Pending PT and OT, possible rehab. My faculty preceptor for this patient encounter was physically present during the encounter and was fully available. All aspects of the patient interview, examination, medical decision making process, and medical care plan development were reviewed and approved by the faculty preceptor. The faculty preceptor is aware and concurs with the plan as stated in the body of this note and will attest to such by his/her co-signature. GUS
[2019-03-11 22:00] VITALS: BP_SYST 129; BP_SYST 144; BP_DIAS 70; BP_DIAS 74
[2019-03-12] MEDS: SLF 3 ML SYR IV SCH ×2 (05:16→14:00)
[2019-03-12 06:00] VITALS: BP 104/63
[2019-03-12 07:19] LABS: HEMATOCRIT 28.3 % (42.0-52.0); HEMOGLOBIN 8.6 g/dl (13.5-17.5); MEAN CORPUSCULAR HEMOGLOBIN 26.1 pg (27.0-33.0); MEAN CORPUSCULAR HGB CONC 30.4 g/dl (32.0-36.5); MEAN CORPUSCULAR VOLUME 85.8 fl (80.0-96.0); PLATELET COUNT, AUTOMATED 239 10^3/uL (150-450); WHITE BLOOD COUNT 6.3 10^3/uL (4.0-10.0)
[2019-03-12] MEDS: HumaLOG INSULIN (NovoLOG) PER UNIT SC SCH ×2 (07:30→09:16)
[2019-03-12 07:42] LABS: ALBUMIN 3.2 GM/DL (3.2-5.2); ALT/SGPT 48 U/L (12-78); BILIRUBIN,TOTAL 0.4 MG/DL (0.2-1.0); BLOOD UREA NITROGEN 16 MG/DL (7-18); CARBON DIOXIDE LEVEL 26 MEQ/L (21-32); CHLORIDE LEVEL 105 MEQ/L (98-107); CREATININE FOR GFR 0.74 MG/DL (0.70-1.30); GLOMERULAR FILTRATION RATE > 60.0 (>56); GLUCOSE, FASTING 102 MG/DL (70-100); POTASSIUM SERUM 4.1 MEQ/L (3.5-5.1); SODIUM LEVEL 137 MEQ/L (136-145); TOTAL PROTEIN 6.5 GM/DL (6.4-8.2)
[2019-03-12] MEDS: FOLIC ACID 1 MG TAB PO SCH (09:17)
[2019-03-12] MEDS: PANTOPRAZOLE 40MG TAB (PROTONIX) PO SCH (09:17)
[2019-03-12] MEDS: MULTIVITAMINS/MINERALS THERAP 1 TAB PO SCH (09:17)
[2019-03-12] MEDS: traMADol 50 MG TAB PO PRN ×2 (10:16→18:14)
[2019-03-12] MEDS: ACETAMINOPHEN TAB 650MG DOSE (2X325MG) PO PRN ×2 (10:16→18:14)
[2019-03-12] MEDS: ENOXAPARIN 40 MG/0.4 ML SYRINGE (J1650) SC SCH (12:42)
--- NOTE | 2019-03-12 13:56 | IPN ---
DATE: 03/12/2019 SUBJECTIVE: The patient examined at bedside. He has no new complaints. No issues overnight. Tolerating diet well. Has been completely tapered off of Serax as of yesterday without any issues. Was currently in physical therapy (PT) and occupational therapy (OT) and awaiting possible subacute rehabilitation. PHYSICAL EXAMINATION: Vitals: Temperature 97.6. Pulse 95. Respirations 18. Blood pressure 104/67. MAP 77. Pulse oximetry 99% on room air. General: Resting comfortably in bed in no acute distress. Alert and oriented times three. Fully conversant. HEENT: Normocephalic, atraumatic. Extraocular muscles intact. Moist mucous membranes. Neck: Supple. Without jugular venous distention (JVD). Cardiac: Regular rate and rhythm, without murmurs. Normal S1 and S2. Lungs: Clear bilaterally without wheezing, rhonchi or rales. Abdomen: Soft. Nontender. Nondistended. Positive bowel sounds. Skin: No visible lesions or ulcerations. No jaundice. Musculoskeletal: Able to move all extremities. Right knee is visibly swollen compared to the left due to his recent fracture. Neurologic: Mild hand tremors present, but improved from admission. Otherwise is stable without any focal deficits or acute changes from prior days. Psych: Normal mood and affect. No display of anxiety, pain or discomfort. LABS: WBC 6.3, hemoglobin/hematocrit (H/H) 8.6/28.3, platelets 239. Electrolytes normal. BUN and creatinine 16 and 0.74. AST and ALT have normalized today to 25 and 48. ASSESSMENT AND PLAN: 58-year-old alcoholic male who presented to the emergency room for alcoholic withdrawal and found to be anemic with melanotic stools over the past few weeks. 1. Alcohol withdrawal. His last drink was 03/07/2019 when he had 6 to 8 Vodka shots. He has been stable throughout his stay here and has not required his as needed Ativan. He has been tapered off of Serax as of yesterday and is doing well. Consider starting acamprosate on discharge to assist alcohol cessation. Continue folate, multivitamin and thiamine. 2. Acute blood loss anemia with underlying melanotic stools. His H/H remains stable. He has undergone an esophagogastroduodenoscopy (EGD) and colonoscopy here. Pathology of biopsies from the scopes revealed reactive changes without any inflammation or H. Pylori. He has received two units PRBCs early in this admission. Otherwise is stable and has not had any melanotic stools. Continue oral Protonix and avoid NSAIDS. 3. Transaminitis. Likely secondary to underlying alcoholism which has resolved today with AST and ALT of 25 and 48. 4. Social living situation. He is homeless. Previously set up at [facility] at the [facility] prior to this admission. PFS is consulted to further assist with more signs cleaner placement. 5. Nondisplaced fracture of the right distal femur on x-ray 03/07/2019. He follows with Dr. Wang and is reportedly supposed to keep that knee in a brace for most of the day. He is supposed to followup with the orthopedist on 03/14/2019. Continue pain control, physical therapy (PT) and occupational therapy (OT) and likely subacute rehabilitation. 6. Deep vein thrombosis (DVT) prophylaxis. Mechanical and encourage ambulation. 7. Disposition: Pending PT/OT and likely rehabilitation. My faculty preceptor for this patient encounter was physically present during the encounter and was fully available. All aspects of the patient interview, examination, medical decision making process, and medical care plan development were reviewed and approved by the faculty preceptor. The faculty preceptor is aware and concurs with the plan as stated in the body of this note and will attest to such by his/her co-signature.
[2019-03-12 14:00] VITALS: BP 114/72
[2019-03-12 22:00] VITALS: BP 117/68
[2019-03-13] MEDS: ACETAMINOPHEN TAB 650MG DOSE (2X325MG) PO PRN ×2 (03:13→09:56)
[2019-03-13] MEDS: traMADol 50 MG TAB PO PRN ×3 (03:13→16:30)
[2019-03-13 06:00] VITALS: BP 112/64
[2019-03-13] MEDS: THIAMINE 100 MG TAB PO SCH ×2 (09:00→16:33)
[2019-03-13] MEDS: FOLIC ACID 1 MG TAB PO SCH (09:54)
[2019-03-13] MEDS: PANTOPRAZOLE 40MG TAB (PROTONIX) PO SCH (09:54)
[2019-03-13] MEDS: MULTIVITAMINS/MINERALS THERAP 1 TAB PO SCH (09:56)
[2019-03-13] MEDS: ENOXAPARIN 40 MG/0.4 ML SYRINGE (J1650) SC SCH (09:56)
[2019-03-13 14:00] VITALS: BP 106/72
--- NOTE | 2019-03-13 17:03 | IPN ---
DATE: 03/13/2019 SUBJECTIVE: Patient is seen and examined in the room today. Patient denies any hand tremors, denies any palpitations, denies any anxieties. He stated he does not feel he has alcohol withdrawal symptoms anymore. Denies any fevers or chills. Denies any shortness of breath. Denies any acute complaints. However, patient currently still feels he has impaired mobility due to the right knee fracture and he still feels he requires a lot of assistance in rehabilitation. Patient is homeless. Patient stated after discharge from rehabilitation he will follow with outreach and education social worker in order to get his temporary housing back. OBJECTIVE: VITAL SIGNS: Temperature 97.7, pulse 69, respiratory rate 16, blood pressure 112/64, pulse oximetry 96% in room air. GENERAL: Patient alert and awake, comfortable. HEENT: Normocephalic, atraumatic. Extraocular motors grossly intact. CARDIOVASCULAR: Positive S1, S2, regular rate. LUNGS: Clear to auscultation bilaterally. ABDOMEN: Soft, nontender, nondistended, bowel sounds present. MUSCULOSKELETAL: Surgical scar noted on the right knee. No significant swelling or warmth noted. No lower extremity edema appreciated. LABORATORY DATA: Patient has refused daily labs. He agreed for laboratory testing every 2 days. Will follow with labs tommorrow. ASSESSMENT AND PLAN: 1. Alcohol withdrawal. Last alcohol usage was 03/07/2019. On average, patient has 6-8 shots of vodka on a daily basis. Patient was on Clinical [place] Withdrawal Assessment (CIWA) protocol. Serax was tapered off completely. Currently, patient does not demonstrate any alcohol withdrawal symptoms. 2. Nondisplaced fracture of the right distal femur. X-ray was done on 03/07/2019. Patient continues to follow with orthopaedic team. Originally, patient's outpatient appointment was on 03/14/2019. Patient has a brace in place. Continue physical therapy and occupational therapy and patient may need rehabilitation. 3. Transaminitis. Suspect secondary to significant alcohol usage. Aspartate transaminase (AST) and alanine transaminase (ALT) has returned to normal range since admission. 4. History of acute blood loss anemia. Patient had upper endoscopy and colonoscopy performed by Dr. Emerson on 03/09/2019. Patient was found to have multiple nonbleeding duodenal ulcers with clean ulcer base and duodenitis and gastritis and moderate diverticulosis from sigmoid to descending colon. Patient has internal and external hemorrhoids. During admission, patient had two packed red blood cells transfusion on 03/08/2019. Currently, patient does not have any signs of acute gastrointestinal (GI) bleed. Hemoglobin and hematocrit remain stable. Continue on Protonix. Will avoid non-steroidal anti-inflammatory drugs (NSAIDs). 5. Deep venous thrombosis (DVT) prophylaxis, on thromboembolism deterrents (TEDs) and compression stockings.
[2019-03-13 22:00] VITALS: BP 126/71
[2019-03-14] MEDS: traMADol 50 MG TAB PO PRN ×3 (02:25→16:42)
[2019-03-14] MEDS: ACETAMINOPHEN TAB 650MG DOSE (2X325MG) PO PRN ×3 (02:25→16:41)
[2019-03-14 06:00] VITALS: BP 140/80
[2019-03-14] MEDS: PANTOPRAZOLE 40MG TAB (PROTONIX) PO SCH (09:30)
[2019-03-14] MEDS: MULTIVITAMINS/MINERALS THERAP 1 TAB PO SCH (09:30)
[2019-03-14] MEDS: THIAMINE 100 MG TAB PO SCH (09:30)
[2019-03-14] MEDS: FOLIC ACID 1 MG TAB PO SCH (09:32)
[2019-03-14] MEDS: ENOXAPARIN 40 MG/0.4 ML SYRINGE (J1650) SC SCH (09:32)
[2019-03-14 14:00] VITALS: BP 145/71
--- NOTE | 2019-03-14 14:47 | CR ---
DATE OF CONSULTATION: 03/14/2019 CONSULTATION FOR: Francesca Viera MD CHIEF COMPLAINT: Right knee pain. HISTORY: This is a 58-year-old gentleman who is followed in our office with Dr. Wang for a right supracondylar femur fracture [id number] replacement that occurred probably 5 weeks ago. The patient had had a fall. He was admitted to the hospital several days ago here for alcohol withdrawal. Apparently, he was supposed to follow in the office today, but I was asked to see him as an inpatient consult. He complains of diffuse pain around his knee. He has been working on gentle range of motion. No new injury or new complaints. He also complains of some chronic right hip pain. His hip and knee surgery were done in [place]. PAST MEDICAL HISTORY: Is notable for alcoholism. HOME MEDICATIONS: Include: - ibuprofen - Tylenol SURGICAL HISTORY: Includes right hip surgery multiple times at [facility], right knee replacement, appendectomy, cholecystectomy. ALLERGIES: None. REVIEW OF SYSTEMS: Not pertinent. PHYSICAL EXAMINATION: He is alert, oriented, in no acute distress. HEENT: Extraocular muscles intact. He has nonlabored breathing. Abdomen is obese and otherwise unremarkable. His right hip demonstrates previous incisions along the right hip that with gentle range of motion of his right hip, this is somewhat irritable. His right knee lacks about 5 degrees at full extension. He can flex at about 70 degrees. This is also somewhat irritable. The overall alignment is good with his knee. Incision is benign. There is no redness, no signs of erythema, no signs of deep venous thrombosis (DVT). No calf tension or palpable cords. X-rays are reviewed from 03/07/2019 of his knee, and they show interval healing and overall fairly good position of this supracondylar femur fracture and the overall good alignment of the knee. IMPRESSION: Right knee periprosthetic fracture. It has been followed in the Orthopaedic office. Apparently, recommendations were needed for weightbearing status, rehabilitation, etc.. RECOMMENDATIONS: 1. He needs to continue to be nonweightbearing. 2. He needs to use his hinged brace when out of bed but can take it off if he is sedentary in bed. 3. Continue with crutches for ambulation assist. 4. Pain management as necessary. 5. When the patient is discharged, would recommend followup with Dr. Wang or a PA in the office in 1-2 weeks.
--- NOTE | 2019-03-14 16:00 | IPNPDOC ---
Text Note Date of Service The patient was seen on 03/14/19. NOTE SUBJECTIVE: Patient is seen and examined in the room today. Patient continues having signficant right knee pain. He states he did not do much with physical therapy due to severe pain. He has appointment today with orthopedic surgery in the outpatient setting to re-evaluate the right knee fracture. OBJECTIVE: VITAL SIGNS: Listed below. GENERAL: Patient alert and awake, comfortable. HEENT: Normocephalic, atraumatic. Extraocular motors grossly intact. CARDIOVASCULAR: Positive S1, S2, regular rate. LUNGS: Clear to auscultation bilaterally. ABDOMEN: Soft, nontender, nondistended, bowel sounds present. MUSCULOSKELETAL: Surgical scar noted on the right knee. No significant swelling or warmth noted. No lower extremity edema appreciated. LABORATORY DATA: He agreed for laboratory testing every 2-3 days. ASSESSMENT AND PLAN: #. Alcohol withdrawal. - On average, patient has 6-8 shots of vodka on a daily basis. Last alcohol usage was 03/07/2019. Serax was tapered off completely. - Currently, patient does not demonstrate any alcohol withdrawal symptoms. #. Nondisplaced fracture of the right distal femur. - X-rays were done on 02/04/19 and 03/07/2019. There is very slow improvement during physical therapy sections. Patient continues having significant knee pain. Patient is due for orthopedic re-evaluation. Outpatient appointment was set up for today. Will consult orthopedic team. ARU screening ordered. - Patient needs rehab. #. Transaminitis. - Suspect secondary to significant alcohol usage. Aspartate transaminase (AST) and alanine transaminase (ALT) has returned to normal range since admission. #. History of acute blood loss anemia. - Upper endoscopy and colonoscopy performed by Dr. Emerson on 03/09/2019. Patient was found to have multiple nonbleeding duodenal ulcers with clean ulcer base,duodenitis, gastritis and moderate diverticulosis from sigmoid to descending colon. Patient also has internal and external hemorrhoids. - During admission, patient had two packed red blood cells transfusion on 03/08/2019. Currently, patient does not have any signs of acute gastrointestinal (GI) bleed. Hemoglobin and hematocrit remain stable. Continue on Protonix. Will avoid non-steroidal anti-inflammatory drugs (NSAIDs). #. Deep venous thrombosis (DVT) prophylaxis, - on thromboembolism deterrents (TEDs) and compression stockings. VS,Fishbone, I+O VS, Fishbone, I+O Vital Signs Date Time Temp Pulse Resp B/P (MAP) Pulse Ox O2 Delivery O2 Flow Rate FiO2 03/14/19 14:00 98.5 85 18 145/71 (95) 99 03/08/19 16:08 Room Air I&O- Last 24 Hours up to 6 AM 03/14/19 06:00 Intake Total 2500 ml Output Total 2650 ml Balance -150 ml BISHNU CLINE DO Mar 14, 2019 16:00
[2019-03-14 22:00] VITALS: BP 133/71
[2019-03-15] MEDS: ACETAMINOPHEN TAB 650MG DOSE (2X325MG) PO PRN ×4 (05:05→22:55)
[2019-03-15] MEDS: traMADol 50 MG TAB PO PRN ×3 (05:06→22:56)
[2019-03-15 06:00] VITALS: BP 135/75
[2019-03-15 07:03] LABS: HEMOGLOBIN 8.7 g/dl (13.5-17.5); MEAN CORPUSCULAR HEMOGLOBIN 25.4 pg (27.0-33.0); MEAN CORPUSCULAR VOLUME 84.8 fl (80.0-96.0); PLATELET COUNT, AUTOMATED 300 10^3/uL (150-450); RED BLOOD COUNT 3.42 10^6/uL (4.30-6.10); WHITE BLOOD COUNT 6.8 10^3/uL (4.0-10.0)
[2019-03-15 07:25] LABS: BLOOD UREA NITROGEN 18 MG/DL (7-18); CARBON DIOXIDE LEVEL 24 MEQ/L (21-32); CHLORIDE LEVEL 107 MEQ/L (98-107); CREATININE FOR GFR 0.72 MG/DL (0.70-1.30); GLOMERULAR FILTRATION RATE > 60.0 (>56); GLUCOSE, FASTING 92 MG/DL (70-100); POTASSIUM SERUM 4.1 MEQ/L (3.5-5.1); SODIUM LEVEL 139 MEQ/L (136-145)
[2019-03-15] MEDS: PANTOPRAZOLE 40MG TAB (PROTONIX) PO SCH (09:03)
[2019-03-15] MEDS: MULTIVITAMINS/MINERALS THERAP 1 TAB PO SCH (09:03)
[2019-03-15] MEDS: FOLIC ACID 1 MG TAB PO SCH (09:03)
[2019-03-15] MEDS: ENOXAPARIN 40 MG/0.4 ML SYRINGE (J1650) SC SCH (09:03)
[2019-03-15] MEDS: THIAMINE 100 MG TAB PO SCH (09:03)
--- NOTE | 2019-03-15 11:42 | REP ---
AP LATERAL RIGHT KNEE, TWO VIEWS: HISTORY: Fracture. COMPARISON: 03/07/2019 The patient is status post right total knee replacement. There is a nondisplaced fracture of the distal femur immediately superior to the femoral prosthesis. There is no dislocation. IMPRESSION: 1. The patient is status post right total knee replacement. 2. Nondisplaced fracture of the distal femur unchanged compared to the previous study. Electronically Signed by Parminder Killian MD 03/15/2019 11:44 A
[2019-03-15 14:00] VITALS: BP 116/58
--- NOTE | 2019-03-15 15:33 | IPNPDOC ---
Date Seen The patient was seen on 03/15/19. Progress Note SUBJECTIVE: Patient continues to complain of pain, he denies any medical complaints other than the pain associated with this fracture and is otherwise feeling well. He insists that he is unable to go home OBJECTIVE PHYSICAL EXAMINATION: VITAL SIGNS: Please see below. GENERAL: Muscular man sitting up in bed he does not appear to be in acute distress awake alert oriented 3 speaking complete sentences HEENT: Cranial nerves II through XII grossly intact CARDIOVASCULAR: S1-S2 regular. RESPIRATORY: Clear to auscultation bilaterally. ABDOMINAL: Bowel sounds present abdomen soft and nontender EXTREMITIES: No clubbing cyanosis or edema LABORATORY DATA, IMAGING STUDIES, MICROBIOLOGY: Please see below. DVT prophylaxis ordered?: Lovenox 40 ASSESSMENT AND PLAN: This is a 58-year-old man with right nondisplaced distal femur fracture PROBLEMS: 1. Nondisplaced distal right femur fracture: Currently not safe by PT and awaiting rehabilitation placement area screen in place. Orthopedic surgery's help appreciated. Also recommending nonhinged brace while out of bed crutches and nonweightbearing status 2. Alcohol abuse: No signs or symptoms of withdrawal at this time is serous been tapered he did apparently have some withdrawal previously. Continue with folate and thiamine and multivitamin sensation counseling provided 3. Alcoholic hepatitis: Acute resolved. 4. Duodenal ulcers: Upper GI bleed status post EGD 03/09/2019 status post 2 units of PRBCs gastroenterology consult greatly appreciated he is continued on Protonix daily avoid NSAIDs follow-up pathology with GI DISPOSITION: Pending PT and rehabilitation placement. VS, I&O, 24H, Fishbone Vital Signs/I&O Vital Signs Date Time Temp Pulse Resp B/P (MAP) Pulse Ox O2 Delivery O2 Flow Rate FiO2 03/15/19 15:00 18 03/15/19 14:00 97.5 94 116/58 (77) 97 I&O- Last 24 Hours up to 6 AM 03/15/19 06:00 Intake Total 2300 ml Output Total 3075 ml Balance -775 ml Laboratory Data 24H LABS Laboratory Tests 2 03/15/19 06:39: Nucleated Red Blood Cells % (auto) 0.0, Anion Gap 8, Glomerular Filtration Rate > 60.0, Blood Urea Nitrogen 18, Creatinine 0.72, Sodium Level 139, Potassium Level 4.1, Chloride Level 107, Carbon Dioxide Level 24, Calcium Level 9.0, Mag nesium Level 2.0 CBC/BMP Laboratory Tests 03/15/19 06:39 Red Blood Count 3.42 L, Mean Corpuscular Volume 84.8, Mean Corpuscular Hemoglobin 25.4 L, Mean Corpuscular Hemoglobin Concent 30.0 L, Red Cell Distribution Width 15.4 H, Calcium Level 9.0 Microbiology Microbiology 03/08/19 Stool Occult Blood (JESS) - Final, Complete SAVITA REDMOND MD Mar 15, 2019 15:33
[2019-03-15 22:00] VITALS: BP 125/78
[2019-03-16 06:00] VITALS: BP 121/70
[2019-03-16] MEDS: ACETAMINOPHEN TAB 650MG DOSE (2X325MG) PO PRN ×2 (08:52→21:29)
[2019-03-16] MEDS: ENOXAPARIN 40 MG/0.4 ML SYRINGE (J1650) SC SCH (08:52)
[2019-03-16] MEDS: MULTIVITAMINS/MINERALS THERAP 1 TAB PO SCH (08:52)
[2019-03-16] MEDS: THIAMINE 100 MG TAB PO SCH (08:52)
[2019-03-16] MEDS: PANTOPRAZOLE 40MG TAB (PROTONIX) PO SCH (08:52)
[2019-03-16] MEDS: traMADol 50 MG TAB PO PRN ×2 (08:52→21:30)
[2019-03-16] MEDS: FOLIC ACID 1 MG TAB PO SCH (08:52)
--- NOTE | 2019-03-16 12:28 | IPNPDOC ---
Date Seen The patient was seen on 03/16/19. Progress Note SUBJECTIVE: Patient continues to complain of pain, he denies any medical complaints. OBJECTIVE PHYSICAL EXAMINATION: VITAL SIGNS: Please see below. GENERAL: Muscular man laying in bed he does not appear to be in acute distress awake alert oriented 3 speaking complete sentences HEENT: Cranial nerves II through XII grossly intact CARDIOVASCULAR: S1-S2 regular. RESPIRATORY: Clear to auscultation bilaterally. ABDOMINAL: Bowel sounds present abdomen soft and nontender EXTREMITIES: No clubbing cyanosis or edema LABORATORY DATA, IMAGING STUDIES, MICROBIOLOGY: Please see below. DVT prophylaxis ordered?: Lovenox 40 ASSESSMENT AND PLAN: This is a 58-year-old man with right nondisplaced distal femur fracture PROBLEMS: 1. Nondisplaced distal right femur fracture: Currently not safe by PT and awaiting rehabilitation placement screen. Orthopedic surgery's help appreciated. Also recommending nonhinged brace while out of bed crutches and nonweightbearing status 2. Alcohol abuse: No signs or symptoms of withdrawal at this time is serous been tapered he did apparently have some withdrawal previously. Continue with folate and thiamine and multivitamin sensation counseling provided 3. Alcoholic hepatitis: Acute resolved. 4. Duodenal ulcers: Upper GI bleed status post EGD 03/09/2019 status post 2 units of PRBCs gastroenterology consult greatly appreciated he is continued on Protonix daily avoid NSAIDs follow-up pathology with GI DISPOSITION: Pending PT and rehabilitation placement. VS, I&O, 24H, Fishbone Vital Signs/I&O Vital Signs Date Time Temp Pulse Resp B/P (MAP) Pulse Ox O2 Delivery O2 Flow Rate FiO2 03/16/19 09:45 18 03/16/19 06:00 97.5 75 121/70 (87) 95 I&O- Last 24 Hours up to 6 AM 03/16/19 06:00 Intake Total 1800 ml Output Total 2650 ml Balance -850 ml Laboratory Data Microbiology Microbiology 03/08/19 Stool Occult Blood (JESS) - Final, Complete SAVITA REDMOND MD Mar 16, 2019 12:28
[2019-03-16 14:00] VITALS: BP 122/69
[2019-03-16 22:00] VITALS: BP 129/74
[2019-03-17 06:00] VITALS: BP 132/78
[2019-03-17] MEDS: FOLIC ACID 1 MG TAB PO SCH (08:55)
[2019-03-17] MEDS: MULTIVITAMINS/MINERALS THERAP 1 TAB PO SCH (08:55)
[2019-03-17] MEDS: PANTOPRAZOLE 40MG TAB (PROTONIX) PO SCH (08:55)
[2019-03-17] MEDS: THIAMINE 100 MG TAB PO SCH (08:55)
[2019-03-17] MEDS: ACETAMINOPHEN TAB 650MG DOSE (2X325MG) PO PRN ×3 (08:56→23:21)
[2019-03-17] MEDS: traMADol 50 MG TAB PO PRN ×3 (08:56→23:21)
[2019-03-17] MEDS: ENOXAPARIN 40 MG/0.4 ML SYRINGE (J1650) SC SCH (08:57)
[2019-03-17 14:00] VITALS: BP 126/79
--- NOTE | 2019-03-17 17:10 | IPNPDOC ---
Date Seen The patient was seen on 03/17/19. Progress Note SUBJECTIVE: Patient continues to complain of pain overnight, no other issues though OBJECTIVE PHYSICAL EXAMINATION: VITAL SIGNS: Please see below. GENERAL: Muscular man laying in bed he does not appear to be in acute distress HEENT: Cranial nerves II through XII grossly intact CARDIOVASCULAR: S1-S2 regular. RESPIRATORY: Clear to auscultation bilaterally. ABDOMINAL: Bowel sounds present abdomen soft EXTREMITIES: No clubbing cyanosis or edema LABORATORY DATA, IMAGING STUDIES, MICROBIOLOGY: Please see below. DVT prophylaxis ordered?: Lovenox 40 ASSESSMENT AND PLAN: This is a 58-year-old man with right nondisplaced distal femur fracture PROBLEMS: 1. Nondisplaced distal right femur fracture: Currently not safe by PT possibly when able to clear stairs tomorrow. Orthopedic surgery's help appreciated. Also recommending nonhinged brace while out of bed crutches and nonweightbearing status 2. Alcohol abuse: No signs or symptoms of withdrawal at this time is serous been tapered he did apparently have some withdrawal previously. Continue with folate and thiamine and multivitamin sensation counseling provided 3. Alcoholic hepatitis: Acute resolved. 4. Duodenal ulcers: Upper GI bleed status post EGD 03/09/2019 status post 2 units of PRBCs gastroenterology consult greatly appreciated he is continued on Protonix daily avoid NSAIDs follow-up pathology with GI. Anemia is stable DISPOSITION: Pending PT possibly home tomorrow. VS, I&O, 24H, Fishbone Vital Signs/I&O Vital Signs Date Time Temp Pulse Resp B/P (MAP) Pulse Ox O2 Delivery O2 Flow Rate FiO2 03/17/19 17:00 18 03/17/19 14:00 98.4 89 126/79 (95) 99 I&O- Last 24 Hours up to 6 AM 03/17/19 06:00 Intake Total 2640 ml Output Total 3000 ml Balance -360 ml Laboratory Data Microbiology Microbiology 03/08/19 Stool Occult Blood (JESS) - Final, Complete SAVITA REDMOND MD Mar 17, 2019 17:10
[2019-03-17 22:00] VITALS: BP 113/74
[2019-03-18 06:00] VITALS: BP 124/70
[2019-03-18] MEDS: traMADol 50 MG TAB PO PRN ×2 (06:07→12:19)
[2019-03-18] MEDS: ACETAMINOPHEN TAB 650MG DOSE (2X325MG) PO PRN ×2 (06:07→12:20)
[2019-03-18 07:38] VITALS: BP 128/70
[2019-03-18] MEDS: MULTIVITAMINS/MINERALS THERAP 1 TAB PO SCH (08:12)
[2019-03-18] MEDS: FOLIC ACID 1 MG TAB PO SCH (08:12)
[2019-03-18] MEDS: PANTOPRAZOLE 40MG TAB (PROTONIX) PO SCH (08:12)
[2019-03-18] MEDS: THIAMINE 100 MG TAB PO SCH (08:12)
[2019-03-18] MEDS: ENOXAPARIN 40 MG/0.4 ML SYRINGE (J1650) SC SCH (08:13)
[2019-03-18 14:00] VITALS: BP 123/76
--- NOTE | 2019-03-18 14:08 | IPNPDOC ---
Date Seen The patient was seen on 03/18/19. Progress Note SUBJECTIVE: Patient continues to complain of pain, no change in status OBJECTIVE PHYSICAL EXAMINATION: VITAL SIGNS: Please see below. GENERAL: Muscular man laying in bed he does not appear to be in acute distress, sleeping but easily awoken HEENT: Cranial nerves II through XII grossly intact CARDIOVASCULAR: S1-S2 regular. RESPIRATORY: Clear to auscultation bilaterally ABDOMINAL: Bowel sounds present abdomen soft EXTREMITIES: No clubbing cyanosis or edema LABORATORY DATA, IMAGING STUDIES, MICROBIOLOGY: Please see below. DVT prophylaxis ordered?: Lovenox 40 ASSESSMENT AND PLAN: This is a 58-year-old man with right nondisplaced distal femur fracture PROBLEMS: 1. Nondisplaced distal right femur fracture: Currently not safe by PT possibly when able to clear stairs. Orthopedic surgery's help appreciated. Also recommending nonhinged brace while out of bed crutches and nonweightbearing status. I did reach out to them again to re eval his pain regimen which they are pleased with and feel is appropriate. 2. Alcohol abuse: No signs or symptoms of withdrawal at this time is serous been tapered he did apparently have some withdrawal previously. Continue with folate and thiamine and multivitamin sensation counseling provided 3. Alcoholic hepatitis: Acute resolved. 4. Duodenal ulcers: Upper GI bleed status post EGD 03/09/2019 status post 2 units of PRBCs gastroenterology consult greatly appreciated he is continued on Protonix daily avoid NSAIDs follow-up pathology with GI. Anemia is stable DISPOSITION: Pending PT VS, I&O, 24H, Fishbone Vital Signs/I&O Vital Signs Date Time Temp Pulse Resp B/P (MAP) Pulse Ox O2 Delivery O2 Flow Rate FiO2 03/18/19 14:00 98.7 77 18 123/76 (92) 97 I&O- Last 24 Hours up to 6 AM 03/18/19 06:00 Intake Total 2580 ml Output Total 2900 ml Balance -320 ml Laboratory Data Microbiology Microbiology 03/08/19 Stool Occult Blood (JESS) - Final, Complete SAVITA REDMOND MD Mar 18, 2019 14:08
[2019-03-18 22:00] VITALS: BP 126/70
[2019-03-19] MEDS: ACETAMINOPHEN TAB 650MG DOSE (2X325MG) PO PRN ×4 (00:29→22:58)
[2019-03-19] MEDS: traMADol 50 MG TAB PO PRN ×4 (00:30→22:59)
[2019-03-19 06:00] VITALS: BP 125/65
[2019-03-19] MEDS: FOLIC ACID 1 MG TAB PO SCH (09:29)
[2019-03-19] MEDS: PANTOPRAZOLE 40MG TAB (PROTONIX) PO SCH (09:29)
[2019-03-19] MEDS: THIAMINE 100 MG TAB PO SCH (09:29)
[2019-03-19] MEDS: MULTIVITAMINS/MINERALS THERAP 1 TAB PO SCH (09:29)
[2019-03-19] MEDS: ENOXAPARIN 40 MG/0.4 ML SYRINGE (J1650) SC SCH (09:29)
[2019-03-19 14:00] VITALS: BP 132/60
--- NOTE | 2019-03-19 16:17 | IPNPDOC ---
Date Seen The patient was seen on 03/19/19. Progress Note SUBJECTIVE: Patient continues to complain of pain, no change in his status today OBJECTIVE PHYSICAL EXAMINATION: VITAL SIGNS: Please see below. GENERAL: Muscular man laying in bed he does not appear to be in acute distress HEENT: Cranial nerves II through XII grossly intact CARDIOVASCULAR: S1-S2 regular. No additional heart sounds appreciated RESPIRATORY: Clear to auscultation bilaterally ABDOMINAL: Bowel sounds present abdomen soft EXTREMITIES: No clubbing cyanosis or edema LABORATORY DATA, IMAGING STUDIES, MICROBIOLOGY: Please see below. DVT prophylaxis ordered?: Lovenox 40 ASSESSMENT AND PLAN: This is a 58-year-old man with right nondisplaced distal femur fracture PROBLEMS: 1. Nondisplaced distal right femur fracture: He's had persistent pain and it rechecked orthopedic surgery insists that he be seen again today and be reevaluated in his pain medication regimen adjusted felt needed the help is greatly appreciated. He has cleared physical therapy but refused discharge as he is currently homeless as per my conversation with him this morning 2. Alcohol abuse: No signs or symptoms of withdrawal at this time is serous been tapered he did apparently have some withdrawal previously. Continue with folate and thiamine and multivitamin sensation counseling provided 3. Alcoholic hepatitis: Acute resolved. 4. Duodenal ulcers: Upper GI bleed status post EGD 03/09/2019 status post 2 units of PRBCs gastroenterology consult greatly appreciated he is continued on Protonix daily avoid NSAIDs follow-up pathology with GI. Anemia is stable DISPOSITION: Pending safe disposition planning VS, I&O, 24H, Fishbone Vital Signs/I&O Vital Signs Date Time Temp Pulse Resp B/P (MAP) Pulse Ox O2 Delivery O2 Flow Rate FiO2 03/19/19 16:00 18 03/19/19 06:00 97.7 70 125/65 (85) 100 I&O- Last 24 Hours up to 6 AM 03/19/19 06:00 Intake Total 650 ml Output Total 1920 ml Balance -1270 ml SAVITA REDMOND MD Mar 19, 2019 16:16
[2019-03-19 22:00] VITALS: BP 123/72
[2019-03-20] MEDS: ACETAMINOPHEN TAB 650MG DOSE (2X325MG) PO PRN ×4 (04:22→22:32)
[2019-03-20] MEDS: traMADol 50 MG TAB PO PRN ×4 (04:22→22:32)
[2019-03-20 06:00] VITALS: BP 122/66
--- NOTE | 2019-03-20 09:11 | REP ---
Right hip two views: Comparison is the AP pelvis day 02/04/2019. There is a total hip arthroplasty with the components tightly applied and in satisfactory positions alignment. There is no interval change. Right knee two views: Comparisons are 02/04/2019, 03/07/2019 and 03/15/2019: There is a total knee arthroplasty with the components tightly applied and in satisfactory positions alignment. A distal femur metaphyseal compression fracture is again suspected. Electronically Signed by Yaniv Galvan MD 03/19/2019 09:11 A
[2019-03-20] MEDS: MULTIVITAMINS/MINERALS THERAP 1 TAB PO SCH (09:58)
[2019-03-20] MEDS: PANTOPRAZOLE 40MG TAB (PROTONIX) PO SCH (09:58)
[2019-03-20] MEDS: FOLIC ACID 1 MG TAB PO SCH (09:58)
[2019-03-20] MEDS: THIAMINE 100 MG TAB PO SCH (09:58)
[2019-03-20] MEDS: ENOXAPARIN 40 MG/0.4 ML SYRINGE (J1650) SC SCH (09:59)
[2019-03-20 14:00] VITALS: BP 123/75
--- NOTE | 2019-03-20 15:10 | IPNPDOC ---
Date Seen The patient was seen on 03/20/19. Progress Note SUBJECTIVE: Patient unusually has no complaints today and tells me he is ready to go tomorrow. OBJECTIVE PHYSICAL EXAMINATION: VITAL SIGNS: Please see below. GENERAL: Muscular man laying in bed he does not appear to be in acute distress, comfortable HEENT: Cranial nerves II through XII grossly intact CARDIOVASCULAR: S1-S2 regular. No additional heart sounds appreciated RESPIRATORY: Clear to auscultation bilaterally ABDOMINAL: Bowel sounds present abdomen soft EXTREMITIES: No clubbing cyanosis or edema, good ROM LABORATORY DATA, IMAGING STUDIES, MICROBIOLOGY: Please see below. DVT prophylaxis ordered?: Lovenox 40 ASSESSMENT AND PLAN: This is a 58-year-old man with right nondisplaced distal femur fracture PROBLEMS: 1. Nondisplaced distal right femur fracture: Pain improved today, repeat imaging unchanged, ortho input greatly appreciated 2. Alcohol abuse: No signs or symptoms of withdrawal at this time is serous been tapered he did apparently have some withdrawal previously. Continue with folate and thiamine and multivitamin sensation counseling provided 3. Alcoholic hepatitis: Acute resolved 4. Duodenal ulcers: Upper GI bleed status post EGD 03/09/2019 status post 2 units of PRBCs gastroenterology consult greatly appreciated he is continued on Protonix daily avoid NSAIDs follow-up pathology with GI. Anemia is stable DISPOSITION: Likely tomorrow VS, I&O, 24H, Fishbone Vital Signs/I&O Vital Signs Date Time Temp Pulse Resp B/P (MAP) Pulse Ox O2 Delivery O2 Flow Rate FiO2 03/20/19 11:00 18 03/20/19 06:00 99.2 69 122/66 (84) 97 I&O- Last 24 Hours up to 6 AM 03/20/19 06:00 Intake Total 2680 ml Output Total 1900 ml Balance 780 ml SAVITA REDMOND MD Mar 20, 2019 15:10
[2019-03-20 22:00] VITALS: BP 143/64
[2019-03-21 06:00] VITALS: BP 107/59
[2019-03-21] MEDS ORDERED: VITMTA PO (07:59)
[2019-03-21] MEDS ORDERED: FOLI1TAB11 PO (07:59)
[2019-03-21] MEDS ORDERED: PANT40TA3 PO (07:59)
[2019-03-21] MEDS ORDERED: THIA100TA PO (07:59)
[2019-03-21] MEDS ORDERED: TRAM50TA2 PO (07:59)
[2019-03-21] MEDS: THIAMINE 100 MG TAB PO SCH (09:14)
[2019-03-21] MEDS: MULTIVITAMINS/MINERALS THERAP 1 TAB PO SCH (09:14)
[2019-03-21] MEDS: ACETAMINOPHEN TAB 650MG DOSE (2X325MG) PO PRN (09:15)
[2019-03-21] MEDS: PANTOPRAZOLE 40MG TAB (PROTONIX) PO SCH (09:15)
[2019-03-21] MEDS: traMADol 50 MG TAB PO PRN (09:15)
[2019-03-21] MEDS: ENOXAPARIN 40 MG/0.4 ML SYRINGE (J1650) SC SCH (09:16)
[2019-03-21] MEDS: FOLIC ACID 1 MG TAB PO SCH (09:16)
--- NOTE | 2019-03-21 15:11 | DSES ---
DATE OF ADMISSION: 03/08/2019 DATE OF DISCHARGE: 03/21/2019 DISCHARGE DIAGNOSIS: Upper gastrointestinal (GI) bleed. SECONDARY DIAGNOSES: Nondisplaced distal right femur fracture. Alcohol abuse. Alcoholic hepatitis. HOSPITAL COURSE: The patient is a 58-year-old man who was initially admitted back on March 08. At that time, he had not seen a physician for over 30 years and he had been drinking excessively, 10-15 shots of alcohol per day. He had a fall while intoxicated and was found to have a hairline fracture and was discharged home with a brace and was supposed to be seen in the office in follow-up. The patient was intoxicated at that time and he was stated to be homeless. Patient and family services (PFS) got involved and got him housing at the [facility], however, he returned to the emergency room complaining of alcohol withdrawal, being shaky and dizzy. He was also found to have a drop in his hemoglobin and admitted that he had been having dark tarry stools for the last couple of months. He was seen in consultation by Dr. Emerson of gastroenterology who did complete an upper endoscopy that revealed a small hiatal hernia, gastritis, multiple non-bleeding duodenal ulcers with clean ulcer base Vincenzo Class III, and duodenitis. He was started on Protonix 40 mg daily, biopsies were taken and he was advised to avoid NSAIDs. At the same time, the patient also under a colonoscopy that revealed moderate diverticulosis, no evidence of bleeding as well as external and internal hemorrhoids. He was advised to have a high fiber diet and have a repeat colonoscopy in 5-10 years. He did receive a total of 2 units of PRBCs with a positive response. The pathology from his upper endoscopy did not reveal any significant Heliobacterium or inflammation. His alcohol withdrawal symptoms did resolve. He did remain in the hospital for an extended period of time due to pain and homelessness. He was seen on several occasions by orthopedic surgery who made no changes to his pain regimen and did check repeat imaging of his femur that did not show any change in his fracture. At this time, housing has been arranged for him and he is being discharged. Subjectively, the patient tells me he is feeling well today and denies complaints. He denies any fevers, chills, chest pain or shortness of breath. OBJECTIVE: VITAL SIGNS: Temperature 99.4, pulse 73, respiratory rate 18, blood pressure 107/59, oxygen saturation 98% on room air. GENERAL: He is a pleasant man lying in bed, turning over comfortably. He is in no distress. Awake, alert and oriented times three. HEENT: Cranial nerves II through XII grossly intact. He has moist mucous membranes. No elevation of central venous pressure (CVP). CARDIOVASCULAR EXAM: S1 and S2 regular. RESPIRATORY EXAM: Clear. ABDOMINAL EXAM: Benign. EXTREMITIES: No clubbing, cyanosis, or edema. LABORATORY STUDIES: WBC 6.8, hemoglobin 8.7, platelet count 300. Chemistry panel - sodium 139, potassium 4.1, chloride 107, bicarb 24, BUN 18, creatinine 0.7. An occult stool for blood was positive. IMAGING: He did have a femur x-ray on 03/19/2019 in which distal femur metaphyseal compression fracture was suspected. ASSESSMENT/PLAN: This is a 58-year-old man with a right nondisplaced distal femur fracture. PROBLEMS: 1. Nondisplaced right distal femur fracture. Orthopedic surgery's help was greatly appreciated. He is to follow-up with Dr. Wang or [facility] two weeks after discharge and follow-up with his primary care physician in seven days. His activity is as per orthopedic surgery. They recommended non-weightbearing and use of crutches. His diet is regular. He has been advised to return to the ER if his symptoms worsen. He is being discharged with several days worth of tramadol and advised to take Tylenol as needed for pain and to avoid NSAIDs. 2. Duodenal ulcers and upper gastrointestinal bleed status post 2 units of packed red blood cells and gastroenterology consult. The patient should follow-up with his primary care provider. Continue taking Protonix daily. A script was provided and to avoid NSAIDs. 3. Acute blood loss anemia secondary to GI bleed as outlined above. 4. Alcoholic hepatitis, resolved. 5. Alcohol abuse. He did not have any symptoms of withdrawal at the time of discharge. He has been tapered down from benzodiazepines. He is being discharged on folic acid, multivitamin and thiamine. DISPOSITION: The patient is being discharged as per patient and family services (PFS). MEDICATIONS AT TIME OF DISCHARGE: - folic acid 1 mg daily - multivitamin one tablet daily - pantoprazole 40 mg daily - thiamine 100 mg daily - tramadol 50 mg every 6 hours as needed for pain - Tylenol 650 mg every 4 hours as needed for pain 45 minutes was spent organizing safe disposition.
== END 2019-03-21 11:56 | disposition home or self-care (01) | DRG 241 ==
LOC: M ED 08:05 → EDBD 08:05 → M ED INP 14:30 → M PCU 16:14 → M MS5PR 03-10 22:47
PROVIDERS: ADMIT Internal Medicine; ATTEND Internal Medicine
PROC: 30233N1 Transfusion of Nonautologous Red Blood Cells into Peripheral Vein, Percutaneous Approach (ICD-10-PCS; 2019-03-08)
PROC: 0DJD8ZZ Inspection of Lower Intestinal Tract, Via Natural or Artificial Opening Endoscopic (ICD-10-PCS; 2019-03-09)
PROC: 0DB78ZX Excision of Stomach, Pylorus, Via Natural or Artificial Opening Endoscopic, Diagnostic (ICD-10-PCS; principal; 2019-03-09 14:00)
DX: K26.4 Chronic or unspecified duodenal ulcer with hemorrhage (principal); E83.42 Hypomagnesemia; K70.10 Alcoholic hepatitis without ascites; E87.6 Hypokalemia; F41.9 Anxiety disorder, unspecified; R73.9 Hyperglycemia, unspecified; K64.4 Residual hemorrhoidal skin tags; K44.9 Diaphragmatic hernia without obstruction or gangrene; F10.239 Alcohol dependence with withdrawal, unspecified; K29.70 Gastritis, unspecified, without bleeding; M97.11XA Periprosthetic fracture around internal prosthetic right knee joint, initial encounter; K57.30 Diverticulosis of large intestine without perforation or abscess without bleeding; K64.8 Other hemorrhoids; Z79.1 Long term (current) use of non-steroidal anti-inflammatories (NSAID); Z59.0 Homelessness; Z90.49 Acquired absence of other specified parts of digestive tract; Z96.651 Presence of right artificial knee joint; D62 Acute posthemorrhagic anemia; W19.XXXA Unspecified fall, initial encounter; Y92.9 Unspecified place or not applicable

== ENCOUNTER → 2019-03-28 | Outpatient (CLI) | payer OTHER ==
[~2019-03-28] MED LIST changes: +FOLI1TAB11 PO; +PANT40TA3 PO; +THIA100TA PO; +TRAM50TA2 PO; +VITMTA PO
== END ==
LOC: M OUTALCOH 08:18
PROVIDERS: ATTEND Psychiatry & Neurology Psychiatry
DX: F10.20 Alcohol dependence, uncomplicated (principal)

== ENCOUNTER 2019-04-12 16:00 | Outpatient (RCR) | payer OTHER | END 2019-04-29 | LOC: M OUTALCOH 16:00 | PROVIDERS: ATTEND Psychiatry & Neurology Psychiatry | DX: F10.20 Alcohol dependence, uncomplicated (principal); Z72.0 Tobacco use ==

== ENCOUNTER 2019-06-07 08:53 | Inpatient (IN) | payer OTHER ==
[~2019-06-07] VITALS: Ht 188 cm; Wt 103.1 kg
[2019-06-07] MEDS ORDERED: VITMTA PO (09:34)
[2019-06-07] MEDS ORDERED: NS 1,000 ML IV ONE (10:15)
[2019-06-07 11:29] LABS: BASO # 0.1 10^3/uL (0.0-0.2); BASO % 0.9 % (0.0-1.0); EOS # 0.1 10^3/uL (0.0-0.50); EOS % 1.4 % (0.0-3.0); HEMATOCRIT 38.7 % (42.0-52.0); HEMOGLOBIN 11.1 g/dl (13.5-17.5); LYMPH % 22.7 % (24.0-44.0); MEAN CORPUSCULAR HEMOGLOBIN 21.6 pg (27.0-33.0); MEAN CORPUSCULAR HGB CONC 28.7 g/dl (32.0-36.5); MEAN CORPUSCULAR VOLUME 75.3 fl (80.0-96.0); MONO # 0.8 10^3/uL (0.0-0.8); MONO % 8.4 % (0.0-5.0); NEUTROPHILS # 5.9 10^3/uL (1.8-7.7); PLATELET COUNT, AUTOMATED 264 10^3/uL (150-450); RED BLOOD COUNT 5.14 10^6/uL (4.30-6.10)
[2019-06-07 11:39] LABS: INR 1.01
--- NOTE | 2019-06-07 11:39 | REP ---
Chest x-ray: Two views. History: Increased pain . Comparison study: No comparison study . Findings: The lungs are well inflated and free of infiltrate. The pleural angles are sharp. The heart size is normal. Pulmonary vasculature is not increased. No significant bony abnormality is seen. There are degenerative changes in the thoracic spine. Impression: Negative chest x-ray. Electronically Signed by Chong Sandoval MD 06/07/2019 11:30 A
[2019-06-07 11:48] LABS: ALBUMIN 3.9 GM/DL (3.2-5.2); ALT/SGPT 23 U/L (12-78); BILIRUBIN,DIRECT 0.1 MG/DL (0.0-0.2); BILIRUBIN,TOTAL 0.5 MG/DL (0.2-1.0); BLOOD UREA NITROGEN 18 MG/DL (7-18); CALCIUM LEVEL 9.9 MG/DL (8.5-10.1); CARBON DIOXIDE LEVEL 27 MEQ/L (21-32); CHLORIDE LEVEL 110 MEQ/L (98-107); CK-MB VALUE MASS 1.4 NG/ML (<3.6); CPK CREATINE PHOSPHOKINASE 74 U/L (39-308); GLOMERULAR FILTRATION RATE > 60.0 (>56); GLUCOSE, FASTING 77 MG/DL (70-100); MAGNESIUM LEVEL 2.2 MG/DL (1.8-2.4); MB/CK RELATIVE INDEX 1.89 (< OR =4); POTASSIUM SERUM 3.4 MEQ/L (3.5-5.1); SODIUM LEVEL 132 MEQ/L (136-145); TOTAL PROTEIN 8.3 GM/DL (6.4-8.2); TROPONIN I < 0.02 NG/ML (< 0.10)
[2019-06-07 11:49] LABS: D-DIMER QUANT 2159.29 ng/ml (<500)
--- NOTE | 2019-06-07 11:57 | REP ---
PELVIS RIGHT HIP: Three views. HISTORY: Increased pain. Comparison AP pelvis February 04, 2019. FINDINGS: Right hip arthroplasty remains in place unchanged in position. There is no acute bony erosive change or fracture. The bony pelvic ring is intact. Sacrum and SI joints are unremarkable. There are degenerative disc changes and facet changes in the lower lumbar spine. The left femoral head is smooth and rounded. Left hip joint space is preserved. There is heterotopic bone formation visible anterior and lateral to the proximal femur in the distribution unchanged from March 19, 2019 prior femur radiographs. There is better mineralization here. IMPRESSION: Status post right hip arthroplasty. Findings unchanged from February 04, 2019. No acute bony abnormality. There is some heterotopic bone formation anterolateral to the proximal femur. This is better mineralized but unchanged in extent. Electronically Signed by Chong Sandoval MD 06/07/2019 04:54 P
[2019-06-07] MEDS ORDERED: ISOVUE-370 76% 100ML VIAL (Q9967) As Ordered ONE (12:43)
--- NOTE | 2019-06-07 14:01 | REP ---
CT ANGIOGRAM CHEST: TECHNIQUE: Axial contrast enhanced images from the thoracic inlet to the upper abdomen using 100 mL Isovue 370 intravenous contrast material with multiplanar reformations. There is no CT evidence of pulmonary embolism. There is no thoracic aortic aneurysm or dissection. There is no mediastinal, hilar, or chest wall lymphadenopathy. The heart is normal in size. There is no pleural or pericardial effusion. No infiltrate is seen in either lung. There are degenerative changes of the spine. In the visualized portions of the upper abdomen there is a partially imaged right renal cyst. IMPRESSION: No evidence of pulmonary embolism or aortic dissection. No infiltrate is seen in either lung. Electronically Signed by Yaniv Davila MD 06/09/2019 10:14 A
[2019-06-07] MEDS ORDERED: MOM 30ML SUSPENSION UDC PO PRN (20:30)
[2019-06-07] MEDS ORDERED: ACET-683 PO (20:46)
[2019-06-07] MEDS ORDERED: TRAM50TA2 PO (20:46)
[2019-06-07 21:52] VITALS: BP 143/69
--- NOTE | 2019-06-07 21:54 | HPEPDOC ---
General Date of Admission Jun 07, 2019 at 20:22 Date of Service: Jun 07, 2019 Chief Complaint The patient is a 58-year-old male admitted with a reason for visit of Recurrent Falls. History of Present Illness 58-year-old male with past medical history of alcohol abuse, and multiple right hip surgeries secondary to a fall from a roof 2 years ago, and recent right supracondylar femur fracture above the knee replacement in December 2018 presented to the ER with chief complaint of recurrent falls and increased pain in the right lower extremity. The patient tells me that his recurrent falls and chronic lower extremity pain again after the traumatic fall in 2016 which has since required 3 hip surgeries at [facility], with the last one being in summer. In addition, the patient sustained a right supracondylar femur fracture above the knee replacement in December 2018, which he has been following the local orthopedic group for. At this time, the patient states that he has been having worsening right lower extremity pain and difficulty with ambulation secondary to the same. He denies any complaints of fevers, chills, chest pain, palpitations, abdominal pain, or any nausea/vom iting/diarrhea. Of note, the patient does state that he is homeless, and has not been able to follow-up adequately for his care. He called Dr. Stephens of the orthopedic group, who recommended the patient come to the ER for further evaluation. In the ER, the patient's lab work was relatively unremarkable. An x-ray image of the right hip/pelvis revealed no acute findings. The patient will be admitted under the hospitalist service for observation for functional optimization Home Medications Scheduled Multivitamins (Thera M Plus Tablet) 1 Each Tablet, 1 TAB PO DAILY, (Reported) Scheduled PRN Acetaminophen (Acetaminophen) 500 Mg Tablet, 1,000 MG PO Q6H PRN for PAIN, (Reported) Tramadol HCl (Tramadol HCl) 50 Mg Tablet, 50 MG PO Q6H PRN for PAIN, (Reported) Allergies Coded Allergies: No Known Allergies (Unverified , 02/04/19) Past Medical History Medical History As noted in HPI. Surgical History Right hip surgery multiple times at [facility], right knee replacement, appendectomy, cholecystectomy. Social History * Smoker: current smoker (has smoked 1 pack per day for the past 40 years) Alcohol: other (patient admits to drinking a fifth of vodka daily for the last several years, however states he has not had any alcohol the last 12 days.) Drugs: denies Patient is currently homeless. Review of Systems Other systems 10 point review of systems negative unless otherwise specified in HPI. Physical Examination General Exam: Positive: Alert, Cooperative, No Acute Distress ENT Exam: Positive: Atraumatic, Mucous membr. moist/pink Neck Exam: Negative: JVD Chest Exam: Positive: Clear to auscultation, Normal air movement Heart Exam: Positive: Rate Normal, Normal S1, Normal S2 Abdomen Exam: Positive: Soft; Negative: Tenderness Extremity Exam: Positive: Other (right lower extremity with limited range of motion at the right hip joint due to chronic pain. Surgical scar noted along side the lateral aspect of the right leg along the hip joint. Surgical scar also noted over the right knee. No active bleeding or cellulitic changes noted, and the scars appear to be well healed. Extremity neurovascularly intact.) Psych Exam: Positive: Oriented x 3 Vital Signs Vital Signs Date Time Temp Pulse Resp B/P (MAP) Pulse Ox O2 Delivery O2 Flow Rate FiO2 06/07/19 20:43 98.3 79 17 131/67 (88) 96 Room Air Laboratory Data Labs 24H Laboratory Tests 2 06/07/19 10:12: Immature Granulocyte % (Auto) 0.6, White Blood Count 9.0, Red Blood Count 5.14, Hemoglobin 11.1L, Hematocrit 38.7L, Mean Corpuscular Volume 75.3L, Mean Corpuscular Hemoglobin 21.6L, Mean Corpuscular Hemoglobin Concent 28.7L, Red Cell Distribution Width 21.4H, Platelet Count 264, Neutrophils (%) (Auto) 66.0, Lymphocytes (%) (Auto) 22.7L, Monocytes (%) (Auto) 8.4H, Eosinophils (%) (Auto) 1.4, Basophils (%) (Auto) 0.9, Neutrophils # (Auto) 5.9, Lymphocytes # (Auto) 2.0, Monocytes # (Auto) 0.8, Eosinophils # (Auto) 0.1, Basophils # (Auto) 0.1, Nucleated Red Blood Cells % (auto) 0.0, Prothrombin Time 13.0, Prothromb Time International Ratio 1.01, Activated Partial Thromboplast Time 29.0, D-Dimer, Quantitative 2159.29H 06/07/19 11:13: Anion Gap -5L, Glomerular Filtration Rate > 60.0, Calcium Level 9.9, Magnesium Level 2.2, Aspartate Amino Transf (AST/SGOT) 17, Alanine Aminotransferase (ALT/SGPT) 23, Alkaline Phosphatase 105, Total Bilirubin 0.5, Direct Bilirubin 0.1, Total Creatine Kinase 74, Creatine Kinase MB 1.4, Creatine Kinase MB Relative Index 1.89, Troponin I < 0.02, Total Protein 8.3H, Albumin 3.9, Albumin/Globulin Ratio 0.89L CBC/BMP Laboratory Tests 06/07/19 10:12 Red Blood Count 5.14, Mean Corpuscular Volume 75.3 L, Mean Corpuscular Hemoglobin 21.6 L, Mean Corpuscular Hemoglobin Concent 28.7 L, Red Cell Distribution Width 21.4 H, Neutrophils (%) (Auto) 66.0, Lymphocytes (%) (Auto) 22.7 L, Monocytes (%) (Auto) 8.4 H, Eosinophils (%) (Auto) 1.4, Basophils (%) (Auto) 0.9, Neutrophils # (Auto) 5.9, Lymphocytes # (Auto) 2.0, Monocytes # (Auto) 0.8, Eosinophils # (Auto) 0.1, Basophils # (Auto) 0.1 06/07/19 11:13 Plan / VTE VTE Prophylaxis Ordered?: Yes Plan Plan Gait Dysfunction 2/2 Chronic RLE Pain XR Imaging of the Right Hip/Pelvis with no acute changes Pain medications as ordered PT/OT ordered for functional optimization Consider orthopedic surgery consultation in the a.m. for further evaluation Homelessness PFS consulted History of alcohol abuse Patient states that he has drank a fifth of vodka daily for several years. However, notes that he has not had a drink in over 12 days. Denies any acute complaints. We will continue to monitor Tobacco abuse Patient counseled on cessation DVT prophylaxis Lovenox subcutaneous KEYON COLON MD Jun 07, 2019 21:54
[2019-06-07] MEDS ORDERED: POTASSIUM CHLORIDE 10 MEQ SR TABLET PO ONE (22:00)
[2019-06-07 22:19] LABS: VITAMIN B12 LEVEL 734 PG/ML (247-911)
[2019-06-07 22:20] LABS: FOLATE > 24.0 NG/ML (>5.4)
[2019-06-07] MEDS: traMADol 50 MG TAB PO PRN (23:48)
[2019-06-07] MEDS: ACETAMINOPHEN TAB 650MG DOSE (2X325MG) PO PRN (23:49)
--- NOTE | 2019-06-08 03:34 | ECGEPIP ---
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
[2019-06-08 06:00] VITALS: BP 120/70
[2019-06-08] MEDS: ACETAMINOPHEN TAB 650MG DOSE (2X325MG) PO PRN ×3 (06:49→19:23)
[2019-06-08] MEDS: traMADol 50 MG TAB PO PRN ×3 (06:50→19:24)
[2019-06-08 07:54] LABS: HEMATOCRIT 37.3 % (42.0-52.0); HEMOGLOBIN 10.5 g/dl (13.5-17.5); MEAN CORPUSCULAR HEMOGLOBIN 21.8 pg (27.0-33.0); MEAN CORPUSCULAR HGB CONC 28.2 g/dl (32.0-36.5); MEAN CORPUSCULAR VOLUME 77.5 fl (80.0-96.0); PLATELET COUNT, AUTOMATED 262 10^3/uL (150-450); RED BLOOD COUNT 4.81 10^6/uL (4.30-6.10); WHITE BLOOD COUNT 5.6 10^3/uL (4.0-10.0)
[2019-06-08 08:26] LABS: ALBUMIN 3.7 GM/DL (3.2-5.2); ALT/SGPT 20 U/L (12-78); BILIRUBIN,TOTAL 0.3 MG/DL (0.2-1.0); BLOOD UREA NITROGEN 13 MG/DL (7-18); CALCIUM LEVEL 9.7 MG/DL (8.5-10.1); CARBON DIOXIDE LEVEL 26 MEQ/L (21-32); CHLORIDE LEVEL 110 MEQ/L (98-107); CREATININE FOR GFR 0.84 MG/DL (0.70-1.30); GLOMERULAR FILTRATION RATE > 60.0 (>56); GLUCOSE, FASTING 119 MG/DL (70-100); MAGNESIUM LEVEL 2.3 MG/DL (1.8-2.4); POTASSIUM SERUM 5.4 MEQ/L (3.5-5.1); SODIUM LEVEL 142 MEQ/L (136-145); TOTAL PROTEIN 7.4 GM/DL (6.4-8.2)
[2019-06-08] MEDS: MULTIVITAMINS/MINERALS THERAP 1 TAB PO SCH (08:42)
[2019-06-08] MEDS: ENOXAPARIN 40 MG/0.4 ML SYRINGE (J1650) SC SCH (08:43)
--- NOTE | 2019-06-08 10:32 | IPNPDOC ---
Date Seen The patient was seen on 06/08/19. Progress Note SUBJECTIVE: Mr. Mcdonnell is a 58-year-old male with a past medical history of alcohol abuse and 3 previous right hip surgeries at [facility] after he fell off a roof 2 years ago. He has a recent right supracondylar femur fracture above the knee replacement in December 2018 and has reported progressively worsening right hip pain since. He currently ambulates with crutches at home. He presented to the ER yesterday after calling Dr. Stephens of the orthopedic group who suggested the patient be seen for further evaluation for a chief complaint of recurrent falls associated with dizziness, lightheadedness, and shortness of breath on standing as well as increased pain in the right lower extremity. Mr. Mcdonnell is seen on bedside rounds this morning sitting in bed. He states that he is continuing to have right hip pain, mostly on ambulation as well as sitting up to get out of bed. He states that the pain is a 1-2/10 when laying and resting and increases to an 8/10 while sitting to get out of bed and ambulation. He denies pain of the hip on palpation. He states that the pain is sharp changes in location, most of the time it is localized to the lateral hip/thigh and radiates into his gluteal region. He states that sometimes the pain travels down towards his groin or to his knee. He also endorses that he has had increasing dizziness, blurred vision, and lightheadedness when he rises to sit after laying. He states that these symptoms started approximately 3 weeks ago and he believes is the source for his falls. He states that feelings of dizziness occur immediately after sitting up, are associated with an increased heart rate and difficulty catching his breath and resolves after 10-15 minutes of resting while sitting. He states that he fell approximately 6 days ago and scraped his face on an arm of a chair when he fell but denies loss of consciousness or head trauma during the fall. He denies shortness of breath at rest, chest pain, fever/chills, palpitations, headaches, loss of consciousness, back pain, nausea, vomiting, changes in bowel habits, abdominal pain, leg swelling, tremulousness, diaphoresis, and sensation loss over the right hip region. Of note, the patient does state that he is homeless and has not been able to follow-up adequately for his care. OBJECTIVE PHYSICAL EXAMINATION: VITAL SIGNS: Please see below. General Exam: Patient examined sitting in bed, Alert, Cooperative, No Acute Distress HEENT Exam: Atraumatic, Mucous membranes moist and pink, poor dentition Chest Exam: Clear to auscultation bilaterally, no rales, rhonchi, wheezing appreciated Heart Exam: Regular rate and rhythm, Normal +S1S2, no murmurs, rubs or gallops appreciated Abdomen Exam: Normal bowel sounds in all 4 quadrants, no tenderness to light or deep palpation, no rebound, rigidity or guarding, no hepatosplenomegaly or masses appreciated Extremity Exam: Right lower extremity with limited range of motion at the right hip joint due to chronic pain. Surgical scar noted along side the lateral aspect of the right leg along the hip joint. Surgical scar also noted over the right knee. Scars appear to be well healed. No tenderness to palpation over the right hip but pain was present on movement to a seated position. No lower extremity edema noted. Psych Exam: Appropriate mood and affect LABORATORY DATA, IMAGING STUDIES, MICROBIOLOGY: Please see below. IMAGING: - Hip/Pelvis X-ray: Status post right hip arthroplasty. Findings unchanged from February 04, 2019. No acute bony abnormality. There is some heterotopic bone formation anterolateral to the proximal femur. This is better mineralized but unchanged in extent. - Chest X-ray: Negative chest x-ray. - Chest CT Angiogram: No evidence of pulmonary embolism or aortic dissection. No infiltrate is seen in either lung. DVT prophylaxis ordered?: Lovenox ASSESSMENT AND PLAN: This is a 58-year-old male with a past medical history of alcohol abuse, 3 previous right hip surgeries at [facility] after he fell off a roof 2 years ago, and a recent right supracondylar femur fracture above the knee replacement in December 2018 who presented to the ER with chief complaint of progressive worsening of right hip pain, recurrent falls and associated dizziness when rising to sit from a laying position. PROBLEMS: 1. Gait Dysfunction 2/2 Chronic RLE Pain -X-ray of Hip/Pelvis: imaging of the Right Hip/Pelvis with no acute changes -c/w pain medications as ordered -c/w PT/OT ordered for functional optimization 2. Recurrent falls - possibly 2/2 to lightheadedness - possibly 2/2 to orthostat ic hypotension -c/w PT/OT ordered for functional optimization -Will monitor for fall risk -Will monitor orthostatic blood pressure 3. Hypokalemia -Supplemented yesterday. - Current K: 5.4 4. Homelessness -PFS consulted 5. History of alcohol abuse -Patient states that he has drank a fifth of vodka daily for several years. However, notes that he has not had a drink in over 12 days. Denies any acute complaints. -We will continue to monitor -Patient does not report tremulousness, diaphoresis, headache, or nausea/vomiting today 6. Tobacco abuse -Patient counseled on cessation 7. DVT prophylaxis -Lovenox subcutaneous DISPOSITION: Patient is stable. He notes that the pain in his right hip worsens on ambulation and when rising to a sitting position. He is currently reporting dizziness upon sitting up and he states that these symptoms have accompanied his recent recurrent falls. Currently monitoring orthostatic blood pressure. Continue pain management and PT/OT for functional optimization. Social work is on board with our current plan. I saw and evaluated the patient. I agree with the findings and plan of care as documented in the resident's note VS, I&O, 24H, [place] Vital Signs/I&O Vital Signs Date Time Temp Pulse Resp B/P (MAP) Pulse Ox O2 Delivery O2 Flow Rate FiO2 06/08/19 07:40 18 06/08/19 06:00 97.8 75 120/70 (87) 97 06/07/19 20:43 Room Air I&O- Last 24 Hours up to 6 AM 06/08/19 06:00 Intake Total 720 ml Output Total 1140 ml Balance -420 ml Laboratory Data 24H LABS Laboratory Tests 2 06/07/19 10:12: Immature Granulocyte % (Auto) 0.6, White Blood Count 9.0, Red Blood Count 5.14, Hemoglobin 11.1L, Hematocrit 38.7L, Mean Corpuscular Volume 75.3L, Mean Corpuscular Hemoglobin 21.6L, Mean Corpuscular Hemoglobin Concent 28.7L, Red Cell Distribution Width 21.4H, Platelet Count 264, Neutrophils (%) (Auto) 66.0, Lymphocytes (%) (Auto) 22.7L, Monocytes (%) (Auto) 8.4H, Eosinophils (%) (Auto) 1.4, Basophils (%) (Auto) 0.9, Neutrophils # (Auto) 5.9, Lymphocytes # (Auto) 2.0, Monocytes # (Auto) 0.8, Eosinophils # (Auto) 0.1, Basophils # (Auto) 0.1, Nucleated Red Blood Cells % (auto) 0.0, Prothrombin Time 13.0, Prothromb Time International Ratio 1.01, Activated Partial Thromboplast Time 29.0, D-Dimer, Quantitative 2159.29H 06/07/19 11:13: Anion Gap -5L, Glomerular Filtration Rate > 60.0, Calcium Level 9.9, Magnesium Level 2.2, Aspartate Amino Transf (AST/SGOT) 17, Alanine Aminotransferase (ALT/SGPT) 23, Alkaline Phosphatase 105, Total Bilirubin 0.5, Direct Bilirubin 0.1, Total Creatine Kinase 74, Creatine Kinase MB 1.4, Creatine Kinase MB Relative Index 1.89, Troponin I < 0.02, Total Protein 8.3H, Albumin 3.9, Albumin/Globulin Ratio 0.89L, Vitamin B12 Level 734, Folate > 24.0 06/08/19 07:37: Nucleated Red Blood Cells % (auto) 0.0, Anion Gap 6L, Glomerular Filtration Rate > 60.0, Calcium Level 9.7, Magnesium Level 2.3, Aspartate Amino Transf (AST/SGOT) 13, Alanine Aminotransferase (ALT/SGPT) 20, Alkaline Phosphatase 107, Total Bilirubin 0.3, Total Protein 7.4, Albumin 3.7, Albumin/Globulin Ratio 1.00, Blood Urea Nitrogen 13, Creatinine 0.84, Sodium Level 142#, Potassium Level 5.4H, Chloride Level 110H, Carbon Dioxide Level 26 CBC/BMP Laboratory Tests 06/07/19 10:12 Red Blood Count 5.14, Mean Corpuscular Volume 75.3 L, Mean Corpuscular Hemoglobin 21.6 L, Mean Corpuscular Hemoglobin Concent 28.7 L, Red Cell Distribution Width 21.4 H, Neutrophils (%) (Auto) 66.0, Lymphocytes (%) (Auto) 22.7 L, Monocytes (%) (Auto) 8.4 H, Eosinophils (%) (Auto) 1.4, Basophils (%) (Auto) 0.9, Neutrophils # (Auto) 5.9, Lymphocytes # (Auto) 2.0, Monocytes # (Auto) 0.8, Eosinophils # (Auto) 0.1, Basophils # (Auto) 0.1 06/07/19 11:13 06/08/19 07:37 Red Blood Count 4.81, Mean Corpuscular Volume 77.5 L, Mean Corpuscular Hemoglobin 21.8 L, Mean Corpuscular Hemoglobin Concent 28.2 L, Red Cell Dist ribution Width 21.6 H, Calcium Level 9.7, Aspartate Amino Transf (AST/SGOT) 13, Alanine Aminotransferase (ALT/SGPT) 20, Alkaline Phosphatase 107, Total Bilirubin 0.3, Total Protein 7.4, Albumin 3.7 CATALINA ANDERS S-3 Jun 08, 2019 10:32 SAVITA REDMOND MD Jun 08, 2019 15:43
[2019-06-08 13:56] VITALS: BP_SYST 137; BP_SYST 143; BP_SYST 147; BP_DIAS 82; BP_DIAS 93; BP_DIAS 99
[2019-06-08 14:30] VITALS: BP 134/77
[2019-06-08 22:00] VITALS: BP 135/78
[2019-06-09] MEDS: ACETAMINOPHEN TAB 650MG DOSE (2X325MG) PO PRN ×4 (01:43→22:04)
[2019-06-09] MEDS: traMADol 50 MG TAB PO PRN ×4 (01:44→22:04)
[2019-06-09 06:00] VITALS: BP 129/75
[2019-06-09 07:30] LABS: HEMATOCRIT 35.1 % (42.0-52.0); HEMOGLOBIN 10.3 g/dl (13.5-17.5); MEAN CORPUSCULAR HEMOGLOBIN 22.4 pg (27.0-33.0); MEAN CORPUSCULAR HGB CONC 29.3 g/dl (32.0-36.5); MEAN CORPUSCULAR VOLUME 76.3 fl (80.0-96.0); PLATELET COUNT, AUTOMATED 273 10^3/uL (150-450); WHITE BLOOD COUNT 5.3 10^3/uL (4.0-10.0)
[2019-06-09] MEDS: MULTIVITAMINS/MINERALS THERAP 1 TAB PO SCH (07:54)
[2019-06-09] MEDS: ENOXAPARIN 40 MG/0.4 ML SYRINGE (J1650) SC SCH (07:55)
[2019-06-09 07:59] LABS: BLOOD UREA NITROGEN 12 MG/DL (7-18); CALCIUM LEVEL 9.5 MG/DL (8.5-10.1); CARBON DIOXIDE LEVEL 27 MEQ/L (21-32); CHLORIDE LEVEL 108 MEQ/L (98-107); CREATININE FOR GFR 0.76 MG/DL (0.70-1.30); GLOMERULAR FILTRATION RATE > 60.0 (>56); GLUCOSE, FASTING 105 MG/DL (70-100); POTASSIUM SERUM 4.2 MEQ/L (3.5-5.1); SODIUM LEVEL 139 MEQ/L (136-145)
--- NOTE | 2019-06-09 11:03 | IPNPDOC ---
Date Seen The patient was seen on 06/09/19. Progress Note SUBJECTIVE: Mr. Mcdonnell is a 58-year-old male with a past medical history of alcohol abuse and 3 previous right hip surgeries at [facility] after sustaining a fall off a roof 2 years ago. He had a recent right supracondylar femur fracture above the knee replacement in December 2018 and has a chief complaint of progressively worsening right hip pain since that time. Mr. Mcdonnell is seen on bedside rounds this morning sitting in bed. He states that this morning he was experiencing chills and shakiness that started at approximately 4:00 am. He stated that he has been feeling more fatigued and weak since the chills started and has had associated nausea. He denies sweating, vomiting, or fever. He reports this morning that he has an increased thirst and that he is drinking all the time as well as an increased urine output compared to normal which started a week prior to his hospitalization. He states that his dizziness upon sitting up from a laying position is the same as yesterday but that his shortness of breath during these episodes has improved. He has been working with PT and OT. He states that his right hip pain is unchanged from yesterday, reporting a dull ache at rest and a 8/10 pain with movement and ambulation. He also notes numbness and mild pain to palpation over the right greater trochanter that is a new symptom for him. He denies chest pain, palpitations, headaches, changes in bowel habits, abdominal pain, leg swelling, and shortness of breath. OBJECTIVE PHYSICAL EXAMINATION: VITAL SIGNS: Please see below. General Exam: Patient examined sitting in bed under blankets, Alert, Cooperative, No Acute Distress, reporting chills HEENT Exam: Atraumatic, Mucous membranes mildly dry, poor dentition Chest Exam: Clear to auscultation bilaterally, no rales, rhonchi, wheezing appreciated Heart Exam: Regular rate and rhythm, Normal +S1S2, no murmurs, rubs or gallops appreciated Abdomen Exam: Normal bowel sounds in all 4 quadrants, no tenderness to light or deep palpation, no rebound, rigidity or guarding, no hepatosplenomegaly or masses appreciated Extremity Exam: Right lower extremity with limited range of motion at the right hip joint due to chronic pain. Surgical scar noted along side the lateral aspect of the right leg along the hip joint. Surgical scar also noted over the right knee. Scars appear to be well healed. Mild tenderness and decreased sensation to palpation over the right hip but pain was present on movement to a seated posi tion. No lower extremity edema noted. Psych Exam: Appropriate mood and affect LABORATORY DATA, IMAGING STUDIES, MICROBIOLOGY: Please see below. IMAGING: - Hip/Pelvis X-ray: Status post right hip arthroplasty. Findings unchanged from February 04, 2019. No acute bony abnormality. There is some heterotopic bone formation anterolateral to the proximal femur. This is better mineralized but unchanged in extent. - Chest X-ray: Negative chest x-ray. - Chest CT Angiogram: No evidence of pulmonary embolism or aortic dissection. No infiltrate is seen in either lung. DVT prophylaxis ordered?: Lovenox ASSESSMENT AND PLAN: This is a 58-year-old male with a past medical history of alcohol abuse, 3 previous right hip surgeries at [facility] after he fell off a roof 2 years ago, and a recent right supracondylar femur fracture above the knee replacement in December 2018 who presented to the ER with chief complaint of progressive worsening of right hip pain, recurrent falls and assoc iated dizziness when rising to sit from a laying position. Today he is endorsing chills, shakiness, polydipsia and polyuria. PROBLEMS: 1. Gait Dysfunction 2/2 Chronic RLE Pain -X-ray of Hip/Pelvis: imaging of the Right Hip/Pelvis with no acute changes -c/w pain medications as ordered -c/w PT/OT ordered for functional optimization -No further falls or complaints of falls patient denies weakness today 2. Recurrent falls - possibly 2/2 to lightheadedness - possibly 2/2 to orthostatic hypotension -c/w PT/OT ordered for functional optimization -Will monitor for fall risk -Monitor orthostatic blood pressure -Today the patient notes feelings of chills, shakiness, polyuria and polydipsia. Will monitor CBC and blood glucose levels. He is afebrile 3. Hypokalemia - resolved -Supplemented 06/07 -Current K: 4.2 4. Homelessness -PFS consulted 5. History of alcohol abuse -Patient states that he has drank a fifth of vodka daily for several years. However, notes that he has not had a drink in over 12 days. Denies any acute complaints. -We will continue to monitor -Patient does not report tremulousness, diaphoresis, headache, or vomiting today. He does endorse nausea this morning associated with chills and shakiness 6. Tobacco abuse -Patient counseled on cessation 7. DVT prophylaxis -Lovenox subcutaneous DISPOSITION: Pending placement for his homelessness PFS encasement unaware patient changed to inpatient status I saw and evaluated the patient. I agree with the findings and plan of care as documented in the above note VS, I&O, 24H, Fishbone Vital Signs/I&O Vital Signs Date Time Temp Pulse Resp B/P (MAP) Pulse Ox O2 Delivery O2 Flow Rate FiO2 06/09/19 08:45 16 06/09/19 06:00 98.0 68 129/75 (93) 98 06/07/19 20:43 Room Air I&O- Last 24 Hours up to 6 AM 06/09/19 06:00 Intake Total 3900 ml Output Total 1425 ml Balance 2475 ml Laboratory Data 24H LABS Laboratory Tests 2 06/09/19 07:17: Nucleated Red Blood Cells % (auto) 0.0, Anion Gap 4L, Glomerular Filtration Rate > 60.0, Blood Urea Nitrogen 12, Creatinine 0.76, Sodium Level 139, Potassium Level 4.2#, Chloride Level 108H, Carbon Dioxide Level 27, Calcium Level 9.5 06/09/19 07:52: Bedside Glucose (Misc Panel) 109H CBC/BMP Laboratory Tests 06/09/19 07:17 Red Blood Count 4.60, Mean Corpuscular Volume 76.3 L, Mean Corpuscular Hemoglobin 22.4 L, Mean Corpuscular Hemoglobin Concent 29.3 L, Red Cell D istribution Width 21.5 H, Calcium Level 9.5 CATALINA ANDERS S-3 Jun 09, 2019 11:03 SAVITA REDMOND MD Jun 10, 2019 13:26
[2019-06-09 14:00] VITALS: BP 134/80
[2019-06-09 21:49] VITALS: BP 131/75
[2019-06-09 21:53] VITALS: BP 131/75
[2019-06-10] MEDS: ACETAMINOPHEN TAB 650MG DOSE (2X325MG) PO PRN ×3 (06:00→20:41)
[2019-06-10] MEDS: traMADol 50 MG TAB PO PRN ×3 (06:00→20:41)
[2019-06-10 06:30] VITALS: BP 132/76
[2019-06-10] MEDS: MULTIVITAMINS/MINERALS THERAP 1 TAB PO SCH (09:45)
[2019-06-10] MEDS: ENOXAPARIN 40 MG/0.4 ML SYRINGE (J1650) SC SCH (09:46)
--- NOTE | 2019-06-10 11:16 | IPNPDOC ---
Text Note Date of Service The patient was seen on 06/10/19. NOTE S: examined at bedside. No new complaints. Still has subjective dizziness and weakness. No events overnight. No f/n/v/abd pain/cp/sob. O: General: resting comfy in bed, NAD CV: RRR, normal s1s2 Pulm: CTAB, no w/r/r Abd: soft, NTND, normoactive bowel sounds Extremities: 2+ pulses throughout, no edema or tenderness MSK: strength 4/5 RLE, 5/5 throughout Neuro: no focal deficits or loss of sensation A/P: 1. Social living situation: Pt has previously been kicked out of previous housing placements due to noncompliance with rules. Currently homeless.PFS working on placement. 2. Weakness & dizziness: orthostatic VS have been negative. Vitals stable. Possible deconditioning. Continue PT/OT. Fall risk precautions. 3. Chronic low back pain: continue home tramadol. Pain controlled. 4. Hx alcohol abuse: Last drink 2 weeks ago. No signs of withdrawal. 5. Tobacco use: pt counseled on cessation. DVT ppx: Lovenox sc DISPO: pending placement & PT/OT. I saw and evaluated the patient. I agree with the findings and plan of care as documented in the above note VS,Fishbone, I+O VS, Fishbone, I+O Vital Signs Date Time Temp Pulse Resp B/P (MAP) Pulse Ox O2 Delivery O2 Flow Rate FiO2 06/10/19 09:45 16 06/10/19 06:30 98.5 61 132/76 (94) 97 06/07/19 20:43 Room Air I&O- Last 24 Hours up to 6 AM 06/10/19 06:00 Intake Total 3340 ml Output Total 2900 ml Balance 440 ml GME ATTESTATION GME ATTESTATION My faculty preceptor for this patient encounter was physically present during the encounter and was fully available. All aspects of the patient interview, examination, medical decision making process, and medical care plan development were reviewed and approved by the faculty preceptor. The faculty preceptor is aware and concurs with the plan as stated in the body of this note and will attest to such by his/her cosignature. JANELLE AQUINO DO Jun 10, 2019 11:16 SAVITA REDMOND MD Jun 10, 2019 15:04
[2019-06-10 14:32] VITALS: BP 133/79
[2019-06-10 22:00] VITALS: BP 130/78
[2019-06-11] MEDS: ACETAMINOPHEN TAB 650MG DOSE (2X325MG) PO PRN ×4 (03:43→22:54)
[2019-06-11] MEDS: traMADol 50 MG TAB PO PRN ×4 (03:44→22:54)
[2019-06-11 06:00] VITALS: BP 129/78
[2019-06-11 09:00] VITALS: BP 127/77
[2019-06-11] MEDS: MULTIVITAMINS/MINERALS THERAP 1 TAB PO SCH (10:21)
[2019-06-11] MEDS: ENOXAPARIN 40 MG/0.4 ML SYRINGE (J1650) SC SCH (10:23)
--- NOTE | 2019-06-11 11:43 | IPNPDOC ---
Text Note Date of Service The patient was seen on 06/11/19. NOTE S: examined at bedside. No new complaints. Reports some nausea overnight that self-resolved. States still having dizziness, but feeling better overall. No f/n/v/abd pain/cp/sob. O: General: resting comfy in bed, NAD CV: RRR, normal s1s2 Pulm: CTAB, no w/r/r Abd: soft, NTND, normoactive bowel sounds Extremities: 2+ pulses throughout, no edema or tenderness MSK: strength 4/5 RLE, 5/5 throughout Neuro: no focal deficits or loss of sensation A/P: 1. Social living situation: Pt has previously been kicked out of previous housing placements due to noncompliance with rules. Currently homeless.PFS working on placement. Will touch base with them when they return Thursday. 2. Weakness & dizziness: orthostatic VS have been negative. Vitals stable. Possible deconditioning. Continue PT/OT. Fall risk precautions. 3. Chronic low back pain: continue home tramadol. Pain controlled. 4. Hx alcohol abuse: Last drink 2 weeks ago. No signs of withdrawal. 5. Tobacco use: pt counseled on cessation. DVT ppx: Lovenox sc DISPO: pending placement & PT/OT. VS,Fishbone, I+O VS, Fishbone, I+O Vital Signs Date Time Temp Pulse Resp B/P (MAP) Pulse Ox O2 Delivery O2 Flow Rate FiO2 06/11/19 10:24 17 06/11/19 09:00 98.4 71 127/77 (94) 98 06/07/19 20:43 Room Air I&O- Last 24 Hours up to 6 AM 06/11/19 06:00 Intake Total 2830 ml Output Total 1300 ml Balance 1530 ml JANELLE AQUINO DO Jun 11, 2019 11:43
[2019-06-11 13:35] VITALS: BP 129/70
[2019-06-11 22:00] VITALS: BP 126/71
[2019-06-12] MEDS: traMADol 50 MG TAB PO PRN ×4 (05:20→23:53)
[2019-06-12] MEDS: ACETAMINOPHEN TAB 650MG DOSE (2X325MG) PO PRN ×4 (05:21→23:52)
[2019-06-12 06:00] VITALS: BP 140/79
[2019-06-12] MEDS: ENOXAPARIN 40 MG/0.4 ML SYRINGE (J1650) SC SCH (10:26)
[2019-06-12] MEDS: MULTIVITAMINS/MINERALS THERAP 1 TAB PO SCH (10:26)
[2019-06-12 14:00] VITALS: BP 115/76
[2019-06-12 21:30] VITALS: BP 122/73
--- NOTE | 2019-06-13 00:12 | IPNPDOC ---
Subjective Date Seen The patient was seen on 06/12/19. Subjective Chief Complaint/HPI continues to have some right hip pain and discomfort while ambulating. but can ambulate independently at present. No dizziness or light headedness at present. No fever or chills, no chest pain or so, no abdominal pain , nausea or vomiting or diarrhea. As per documentation has not had bowel movement for several days Objective Physical Examination General Exam: Positive: Alert, Cooperative, No Acute Distress ENT Exam: Positive: Atraumatic, Mucous membr. moist/pink Neck Exam: Negative: JVD Chest Exam: Positive: Clear to auscultation, Normal air movement Heart Exam: Positive: Rate Normal, Regular Rhythm, Normal S1, Normal S2; Negative: Gallops, Murmurs, Rubs Abdomen Exam: Positive: Soft; Negative: Tenderness Extremity Exam: Positive: Other (right lower extremity with limited range of motion at the right hip joint due to chronic pain. Surgical scar noted along side the lateral aspect of the right leg along the hip joint. Surgical scar also noted over the right knee. No active bleeding or cellulitic changes noted, and the scars appear to be well healed. Extremity neurovascularly intact.); Negative: Clubbing, Cyanosis, Edema Skin Exam: Positive: Nl turgor and temperature; Negative: Rash, Breakdown Psych Exam: Positive: Oriented x 3 Assessment /Plan Assessment 58-year-old male with past medical history of alcohol abuse, and multiple right hip surgeries secondary to a fall from a roof 2 years ago, and recent right supracondylar femur fracture above the knee replacement in December 2018 presented to the ER with chief complaint of recurrent falls and increased pain in the right lower extremity. The patient tells me that his recurrent falls and chronic lower extremity pain again after the traumatic fall in 2017 which has since required 3 hip surgeries at [facility], with the last one being in summer of 2017. In addition, the patient sustained a right supracondylar femur fracture above the knee replacement in December 2018, which he has been following the local orthopedic group for. At this time, the patient states that he has been having worsening right lower extremity pain and difficulty with ambulation secondary to the same. Right lower extremity pain: controlled at this time and is able to ambulate independently. Patient has been cleared from PT standpoint though at this point he does not have a place to go to. He is homeless. Social living situation: Pt has previously been kicked out of previous housing placements due to noncompliance with rules. Currently homeless.PFS working on placement. Weakness & dizziness: Now mostly resolved. orthostatic VS have been negative. Vitals stable. Possible deconditioning. Continue PT/OT. Fall risk precautions. Chronic low back pain: continue tramadol . Dose and schedule have been adjusted. Hx alcohol abuse: Last drink 2 weeks ago. No signs of withdrawal. Tobacco use: pt counseled on cessation. DVT ppx: Lovenox sc DISPO: pending placement & PT/OT. Plan/VTE VTE Prophylaxis Ordered?: Yes VS, I&O, 24H, Fishbone Vital Signs/I&O Vital Signs Date Time Temp Pulse Resp B/P (MAP) Pulse Ox O2 Delivery O2 Flow Rate FiO2 06/12/19 05:50 16 06/11/19 22:00 98.5 69 126/71 (89) 96 06/07/19 20:43 Room Air I&O- Last 24 Hours up to 6 AM 06/12/19 06:00 Intake Total 2580 ml Output Total 1800 ml Balance 780 ml KATY MOULTON MD Jun 12, 2019 06:12
[2019-06-13] MEDS ORDERED: PILL CUTTER 1 EACH XX PRN (00:30)
[2019-06-13] MEDS: traMADol 50 MG TAB PO PRN ×2 (06:36→17:34)
[2019-06-13] MEDS: ACETAMINOPHEN TAB 650MG DOSE (2X325MG) PO PRN ×3 (06:36→21:23)
[2019-06-13 06:45] VITALS: BP 118/74
[2019-06-13 06:55] LABS: BASO # 0.1 10^3/uL (0.0-0.2); BASO % 1.7 % (0.0-1.0); EOS # 0.2 10^3/uL (0.0-0.50); EOS % 2.5 % (0.0-3.0); HEMATOCRIT 37.7 % (42.0-52.0); HEMOGLOBIN 10.7 g/dl (13.5-17.5); LYMPH # 1.8 10^3/uL (1.5-4.5); LYMPH % 26.6 % (24.0-44.0); MEAN CORPUSCULAR HEMOGLOBIN 22.1 pg (27.0-33.0); MEAN CORPUSCULAR HGB CONC 28.4 g/dl (32.0-36.5); MEAN CORPUSCULAR VOLUME 77.7 fl (80.0-96.0); MONO # 0.7 10^3/uL (0.0-0.8); MONO % 10.4 % (0.0-5.0); NEUTROPHILS % 58.5 % (36.0-66.0); PLATELET COUNT, AUTOMATED 376 10^3/uL (150-450); RED BLOOD COUNT 4.85 10^6/uL (4.30-6.10); WHITE BLOOD COUNT 6.9 10^3/uL (4.0-10.0)
[2019-06-13 07:16] LABS: BLOOD UREA NITROGEN 16 MG/DL (7-18); CALCIUM LEVEL 9.5 MG/DL (8.5-10.1); CARBON DIOXIDE LEVEL 28 MEQ/L (21-32); CHLORIDE LEVEL 105 MEQ/L (98-107); CREATININE FOR GFR 0.75 MG/DL (0.70-1.30); GLOMERULAR FILTRATION RATE > 60.0 (>56); GLUCOSE, FASTING 93 MG/DL (70-100); POTASSIUM SERUM 4.4 MEQ/L (3.5-5.1); SODIUM LEVEL 138 MEQ/L (136-145)
[2019-06-13] MEDS ORDERED: traMADol 50 MG TAB PO SCH (09:00)
[2019-06-13] MEDS: SENOKOT S TAB PO SCH ×2 (09:19→21:23)
[2019-06-13] MEDS: MULTIVITAMINS/MINERALS THERAP 1 TAB PO SCH (09:20)
[2019-06-13] MEDS: traMADol 50 MG TAB PO SCH ×2 (09:20→21:24)
[2019-06-13] MEDS: BISACODYL 5 MG TAB PO SCH (09:20)
[2019-06-13] MEDS: ENOXAPARIN 40 MG/0.4 ML SYRINGE (J1650) SC SCH (09:21)
[2019-06-13 14:30] VITALS: BP 120/81
--- NOTE | 2019-06-13 18:25 | DS.PDOC ---
Discharge Summary General Date of Admission Jun 09, 2019 at 13:25 Date of Discharge 06/13/19 Attending Physician: KATY MOULTON MD Discharge Summary PROCEDURES PERFORMED DURING STAY: None. ADMITTING DIAGNOSES: 1. Recurrent falls DISCHARGE DIAGNOSES: Recurrent falls, weakness Gait instability and disbalance uses crutches Social living situation Alcohol abuse Tobacco abuse COMPLICATIONS/CHIEF COMPLAINT: Recurrent Falls. HISTORY OF PRESENT ILLNESS: 58-year-old male came to the ER for recurrent falls and increasing pain in the right leg. He recent had a supracondylar femur fracture above the knee replacement December 2018, for which he is following with [facility] orthopedics in treating with conservative measures, no surgery. He complained of worsening pain in that leg to Dr. Stephens orthopedist, who recommended he come to the ER for further evaluation. No fever chills chest pain or shortness of breath. He did state that he is homeless, has on multiple occasions in the past been set up by licensed social worker for housing, however he violates rules and has been kicked out, most recently from the [facility] [place]. Imaging did not reveal any new changes, and patient was admitted for ob servation. HOSPITAL COURSE: He worked with PT & OT, and licensed social worker was consulted for his living situation. Placed on fall risk precautions. He reported subjective dizziness, but vitals stable otherwise and orthostatics were negative throughout stay. He was noted ambulate independently by PT & OT, and cleared to leave hospital. Unfortunately, given Mr. Mcdonnell's hx of noncompliance with housing rules causing him to be evicted, social work was unable to find him housing. He was offered options such as [employer] (men's homeless custodial), however he stated he will not stop drinking. He is medically stable and cleared for discharge with no current active problem, and advised to return to ER for emergency. DISCHARGE MEDICATIONS: Please see below. ALLERGIES: Please see below. PHYSICAL EXAMINATION ON DISCHARGE: VITAL SIGNS: Please see below. GENERAL: NAD, A&Ox3 HEENT: nc, at, EOMI NECK: supple, no JVD CARDIOVASCULAR EXAMINATION: RRR, normal S1 S2 RESPIRATORY EXAMINATION: CTAB, no w/r/r ABDOMINAL EXAMINATION: soft, nt/nd, normoactive bowel sounds EXTREMITIES: 2+ pulses b/l, no cyanosis or edema SKIN: no visible rash or lesions, warm, dry NEUROLOGICAL EXAMINATION: no focal deficits, able to move all extremities independently & equally LABORATORY DATA: Please see below. IMAGING: * 06/07/19 hip-Pelvis x-ray: Status post right hip arthroplasty. Findings unchanged from February 04, 2019. No acute bony abnormality. There is some heterotopic bone formation anterolateral to the proximal femur. This is better mineralized but unchanged in extent. * 06/07/19 CXR: Negative chest x-ray. * 06/07/2019 CTA: No evidence of pulmonary embolism or aortic dissection. No infiltrate is seen in either lung. PROGNOSIS: good ACTIVITY: As tolerated. DIET: 2g sodium DISPOSITION: home DISCHARGE INSTRUCTIONS: 1. Follow-up with PCP within a week 2. Return to ER for emergency DISCHARGE CONDITION: Stable. TIME SPENT ON DISCHARGE: 35 minutes. Vital Signs/I&Os Vital Signs Date Time Temp Pulse Resp B/P (MAP) Pulse Ox O2 Delivery O2 Flow Rate FiO2 06/13/19 17:34 18 06/13/19 14:30 98.3 83 120/81 (94) 99 06/07/19 20:43 Room Air I&O- Last 24 Hours up to 6 AM 06/13/19 06:00 Intake Total 3670 ml Output Total 1000 ml Balance 2670 ml Laboratory Data Labs 24H Laboratory Tests 2 06/13/19 06:30: Immature Granulocyte % (Auto) 0.3, White Blood Count 6.9, Red Blood Count 4.85, Hemoglobin 10.7L, Hematocrit 37.7L, Mean Corpuscular Volume 77.7L, Mean Corpuscular Hemoglobin 22.1L, Mean Corpuscular Hemoglobin Concent 28.4L, Red Cell Distribution Width 21.4H, Platelet Count 376, Neutrophils (%) (Auto) 58.5, Lymphocytes (%) (Auto) 26.6, Monocytes (%) (Auto) 10.4H, Eosinophils (%) (Auto) 2.5, Basophils (%) (Auto) 1.7H, Neutrophils # (Auto) 4.0, Lymphocytes # (Auto) 1.8, Monocytes # (Auto) 0.7, Eosinophils # (Auto) 0.2, Basophils # (Auto) 0.1, Nucleated Red Blood Cells % (auto) 0.0, Anion Gap 5L, Glomerular Filtration Rate > 60.0, Blood Urea Nitrogen 16, Creatinine 0.75, Sodium Level 138, Potassium Level 4.4, Chloride Level 105, Carbon Dioxide Level 28, Calcium Level 9.5 CBC/BMP Laboratory Tests 06/13/19 06:30 Red Blood Count 4.85, Mean Corpuscular Volume 77.7 L, Mean Corpuscular Hemoglobin 22.1 L, Mean Corpuscular Hemoglobin Concent 28.4 L, Red Cell Distribution Width 21.4 H, Neutrophils (%) (Auto) 58.5, Lymphocytes (%) (Auto) 26.6, Monocytes (%) (Auto) 10.4 H, Eosinophils (%) (Auto) 2.5, Basophils (%) (Auto) 1.7 H, Neutrophils # (Auto) 4.0, Lymphocytes # (Auto) 1.8, Monocytes # (Auto) 0.7, Eosinophils # (Auto) 0.2, Basophils # (Auto) 0.1, Calcium Level 9.5 Discharge Medications Scheduled Multivitamins (Thera M Plus Tablet) 1 Each Tablet, 1 TAB PO DAILY, (Reported) Scheduled PRN Acetaminophen (Acetaminophen) 500 Mg Tablet, 1,000 MG PO Q6H PRN for PAIN, (Reported) Tramadol HCl (Tramadol HCl) 50 Mg Tablet, 50 MG PO Q6H PRN for PAIN, (Reported) Allergies Coded Allergies: No Known Allergies (Unverified , 02/04/19) GME ATTESTATION GME ATTESTATION My faculty preceptor for this patient encounter was physically present during the encounter and was fully available. All aspects of the patient interview, examination, medical decision making process, and medical care plan development were reviewed and approved by the faculty preceptor. The faculty preceptor is aware and concurs with the plan as stated in the body of this note and will attest to such by his/her cosignature. ATTENDING NOTE I have personally seen and examined the patient this am. I agree with the fi nding and the plan of care as documented above in the resident's note. I spent 35 minutes in counselling the patient and coordinating his discharge. JANELLE AQUINO DO Jun 13, 2019 18:25 KATY MOULTON MD Jun 13, 2019 18:52
[2019-06-13 21:40] VITALS: BP 127/73
--- NOTE | 2019-06-13 22:45 | IPNPDOC ---
Subjective Date Seen The patient was seen on 06/13/19. Subjective Chief Complaint/HPI Patient very upset as he was told he is being discharged as he has cleared PT and there is no medical need for him to be in the hospital. He continues to day that he is dizzy and weak and unable to ambulate. He has been ambulating independently over the week end and walked to PT with crutches on Thursday. But always continues to complain of pain. Objective Physical Examination General Exam: Positive: Alert, Cooperative, No Acute Distress ENT Exam: Positive: Atraumatic, Mucous membr. moist/pink Neck Exam: Negative: JVD Chest Exam: Positive: Clear to auscultation, Normal air movement Heart Exam: Positive: Rate Normal, Regular Rhythm, Normal S1, Normal S2; Negative: Gallops, Murmurs, Rubs Abdomen Exam: Positive: Soft; Negative: Tenderness Extremity Exam: Positive: Other (right lower extremity with limited range of motion at the right hip joint due to chronic pain. Surgical scar noted along side the lateral aspect of the right leg along the hip joint. Surgical scar also noted over the right knee. No active bleeding or cellulitic changes noted, and the scars appear to be well healed. Extremity neurovascularly intact.); Negative: Clubbing, Cyanosis, Edema Skin Exam: Positive: Nl turgor and temperature; Negative: Rash, Breakdown Psych Exam: Positive: Oriented x 3 Assessment /Plan Assessment 58-year-old male with past medical history of alcohol abuse, and multiple right hip surgeries secondary to a fall from a roof 2 years ago, and recent right supracondylar femur fracture above the knee replacement in December 2018 presented to the ER with chief complaint of recurrent falls and increased pain in the right lower extremity. The patient tells me that his recurrent falls and chronic lower extremity pain again after the traumatic fall in 2017 which has since required 3 hip surgeries at [facility], with the last one being in summer of 2017. In addition, the patient sustained a right supracondylar femur fracture above the knee replacement in December 2018, which he has been following the local orthopedic group for. At this time, the patient states that he has been having worsening right lower extremity pain and difficulty with ambulation secondary to the same. Right lower extremity pain: controlled at this time and is able to ambulate independently. Patient has been cleared from PT standpoint Social living situation: Pt has previously been kicked out of previous housing placements due to noncompliance with rules. Currently homeless. As per [facility] will get new housing in June. He does not qualify for emergency housing Weakness & dizziness: Now mostly resolved. orthostatic VS have been negative. Vitals stable. Possible deconditioning. Chronic low back pain: continue tramadol . Dose and schedule have been adjusted. Hx alcohol abuse: Last drink 2 weeks ago. No signs of withdrawal. Tobacco use: pt counseled on cessation. DVT ppx: Lovenox sc DISPO: Patient has been cleared from PT standpoint, Does not qualify for emergency housing from [facility]. [employer] has been sanctioned and is eligible to apply for housing with [facility] in 22 days. Medically cleared and discharged. However patient has refused to go as he says he has no place to live. PFS aware. Plan/VTE VTE Prophylaxis Ordered?: Yes VS, I&O, 24H, Fishbone Vital Signs/I&O Vital Signs Date Time Temp Pulse Resp B/P (MAP) Pulse Ox O2 Delivery O2 Flow Rate FiO2 06/13/19 21:40 97.0 74 20 127/73 (91) 96 06/07/19 20:43 Room Air I&O- Last 24 Hours up to 6 AM 06/13/19 06:00 Intake Total 3670 ml Output Total 1000 ml Balance 2670 ml Laboratory Data 24H LABS Laboratory Tests 2 06/13/19 06:30: Immature Granulocyte % (Auto) 0.3, White Blood Count 6.9, Red Blood Count 4.85, Hemoglobin 10.7L, Hematocrit 37.7L, Mean Corpuscular Volume 77.7L, Mean Corpuscular Hemoglobin 22.1L, Mean Corpuscular Hemoglobin Concent 28.4L, Red Cell Distribution Width 21.4H, Platelet Count 376, Neutrophils (%) (Auto) 58.5, Lymphocytes (%) (Auto) 26.6, Monocytes (%) (Auto) 10.4H, Eosinophils (%) (Auto) 2.5, Basophils (%) (Auto) 1.7H, Neutrophils # (Auto) 4.0, Lymphocytes # (Auto) 1.8, Monocytes # (Auto) 0.7, Eosinophils # (Auto) 0.2, Basophils # (Auto) 0.1, Nucleated Red Blood Cells % (auto) 0.0, Anion Gap 5L, Glomerular Filtration Rate > 60.0, Blood Urea Nitrogen 16, Creatinine 0.75, Sodium Level 138, Potassium Level 4.4, Chloride Level 105, Carbon Dioxide Level 28, Calcium Level 9.5 CBC/BMP Laboratory Tests 06/13/19 06:30 Red Blood Count 4.85, Mean Corpuscular Volume 77.7 L, Mean Corpuscular Hemoglobin 22.1 L, Mean Corpuscular Hemoglobin Concent 28.4 L, Red Cell Di stribution Width 21.4 H, Neutrophils (%) (Auto) 58.5, Lymphocytes (%) (Auto) 26.6, Monocytes (%) (Auto) 10.4 H, Eosinophils (%) (Auto) 2.5, Basophils (%) (Auto) 1.7 H, Neutrophils # (Auto) 4.0, Lymphocytes # (Auto) 1.8, Monocytes # (Auto) 0.7, Eosinophils # (Auto) 0.2, Basophils # (Auto) 0.1, Calcium Level 9.5 KATY MOULTON MD Jun 13, 2019 22:45
[2019-06-14 06:00] VITALS: BP 137/69
[2019-06-14] MEDS: SENOKOT S TAB PO SCH ×3 (09:00→20:26)
[2019-06-14] MEDS: BISACODYL 5 MG TAB PO SCH (09:00)
[2019-06-14] MEDS: ENOXAPARIN 40 MG/0.4 ML SYRINGE (J1650) SC SCH (09:26)
[2019-06-14] MEDS: MULTIVITAMINS/MINERALS THERAP 1 TAB PO SCH (09:27)
[2019-06-14] MEDS: ACETAMINOPHEN TAB 650MG DOSE (2X325MG) PO PRN ×3 (09:27→20:26)
[2019-06-14] MEDS: traMADol 50 MG TAB PO SCH ×2 (09:28→20:26)
[2019-06-14 14:00] VITALS: BP 137/79
[2019-06-14] MEDS: traMADol 50 MG TAB PO PRN (15:08)
--- NOTE | 2019-06-14 17:21 | IPNPDOC ---
Text Note Date of Service The patient was seen on 06/14/19. NOTE S: No new complaints. Refused to leave yesterday although medically discharged and cleared by PT & OT. He has appealed d/c, stating he has nowhere to go and is worried he will fall again. No new complaints today. No f/n/v/abd pain/cp/sob. O: General: resting comfy in bed, NAD CV: RRR, normal s1s2 Pulm: CTAB, no w/r/r Abd: soft, NTND, normoactive bowel sounds Extremities: 2+ pulses throughout, no edema or tenderness MSK: strength intact & equal throughout Neuro: no focal deficits or loss of sensation A/P: 1. Social living situation: Pt refuses to leave hospital, stating he has nowhere to go and feels he will fall again. PFS has assisted in setting up housing arrangements, but he has previously been kicked out of prior places due to noncompliance with rules, and refused options proposed by [facility], stating he does not want to quit drinking as required by housing rules. Currently homeless. Awaiting his appeal decision to stay in hospital. 2. Weakness & dizziness: orthostatic VS have been negative. Vitals stable. Possible deconditioning. Cleared PT/OT. 3. Chronic low back pain: continue home tramadol. Pain controlled. 4. Hx alcohol abuse: Last drink 3 weeks ago. No signs of withdrawal. 5. Tobacco use: pt counseled on cessation. DVT ppx: Lovenox sc DISPO: awaiting pt's appeal decision on decision to discharge him. VS,Fishbone, I+O VS, Fishbone, I+O Vital Signs Date Time Temp Pulse Resp B/P (MAP) Pulse Ox O2 Delivery O2 Flow Rate FiO2 06/14/19 15:08 16 06/14/19 14:00 98.1 91 137/79 (98) 97 I&O- Last 24 Hours up to 6 AM 06/14/19 06:00 Intake Total 2580 ml Output Total 2050 ml Balance 530 ml GME ATTESTATION GME ATTESTATION My faculty preceptor for this patient encounter was physically present during the encounter and was fully available. All aspects of the patient interview, examination, medical decision making process, and medical care plan development were reviewed and approved by the faculty preceptor. The faculty preceptor is aware and concurs with the plan as stated in the body of this note and will attest to such by his/her cosignature. ATTENDING NOTE I have personally seen and examined the patient this am. I agree with the finding and the plan of care as documented above resident's/ medical student's note. JANELLE AQUINO DO Jun 14, 2019 17:21 KATY MOULTON MD Jun 14, 2019 23:19
[2019-06-14 22:00] VITALS: BP 144/74
[2019-06-15 06:00] VITALS: BP 140/72
[2019-06-15] MEDS: MULTIVITAMINS/MINERALS THERAP 1 TAB PO SCH (08:40)
[2019-06-15] MEDS: BISACODYL 5 MG TAB PO SCH (08:41)
[2019-06-15] MEDS: SENOKOT S TAB PO SCH ×2 (08:41→20:27)
[2019-06-15] MEDS: ACETAMINOPHEN TAB 650MG DOSE (2X325MG) PO PRN ×3 (08:42→20:27)
[2019-06-15] MEDS: traMADol 50 MG TAB PO SCH ×2 (08:42→20:26)
[2019-06-15] MEDS: ENOXAPARIN 40 MG/0.4 ML SYRINGE (J1650) SC SCH (08:43)
[2019-06-15 14:30] VITALS: BP 138/75
[2019-06-15] MEDS: traMADol 50 MG TAB PO PRN (15:18)
--- NOTE | 2019-06-15 16:06 | IPNPDOC ---
Text Note Date of Service The patient was seen on 06/15/19. NOTE S: No new complaints. Pt stable and still awaiting to hear back from his insurance regarding his appeal to stay in the hospital. No f/n/v/abd pain/cp/sob. O: General: resting comfy in bed, NAD CV: RRR, normal s1s2 Pulm: CTAB, no w/r/r Abd: soft, NTND, normoactive bowel sounds Extremities: 2+ pulses throughout, no edema or tenderness MSK: strength intact & equal throughout Neuro: no focal deficits or loss of sensation A/P: 1. Social living situation: housing was fortunately secured and pt is now agreeable to go. Currently homeless. Please see Disposition. 2. Weakness & dizziness: orthostatic VS have been negative. Vitals stable. Possible deconditioning. Cleared PT/OT. 3. Chronic low back pain: continue home tramadol. Pain controlled. 4. Hx alcohol abuse: Last drink 3 weeks ago. No signs of withdrawal. 5. Tobacco use: pt counseled on cessation. DVT ppx: Lovenox sc DISPO: please see prior discharge note from 06/13/19. It was delayed due to him refusing to leave and appealing the discharge, for which he is still waiting to hear back from insurance. During his stay, [facility] worked to obtain housing for him as he is homeless, but he refused options, stating he would not comply with housing rules that include quitting drinking. In meanwhile, [facility] was able to secure him housing in [facility], for which he is now agreeable to go and then plans to obtain housing once his DDS restarts next month. He is medically stable and doing well. VS,Fishbone, I+O VS, Fishbone, I+O Vital Signs Date Time Temp Pulse Resp B/P (MAP) Pulse Ox O2 Delivery O2 Flow Rate FiO2 06/15/19 15:18 16 06/15/19 06:00 98.0 85 140/72 (94) 98 I&O- Last 24 Hours up to 6 AM 06/15/19 06:00 Intake Total 4200 ml Output Total 1450 ml Balance 2750 ml GME ATTESTATION GME ATTESTATION My faculty preceptor for this patient encounter was physically present during the encounter and was fully available. All aspects of the patient interview, examination, medical decision making process, and medical care plan development were reviewed and approved by the faculty preceptor. The faculty preceptor is aware and concurs with the plan as stated in the body of this note and will attest to such by his/her cosignature. ATTENDING NOTE I have personally seen and examined the patient this am. I agree with the finding and the plan of care as documented above resident's note . JANELLE AQUINO DO Jun 15, 2019 16:06 KATY MOULTON MD Jun 15, 2019 22:21
[2019-06-15 22:00] VITALS: BP 132/86
[2019-06-16] MEDS: traMADol 50 MG TAB PO PRN ×2 (03:37→15:47)
[2019-06-16] MEDS: ACETAMINOPHEN TAB 650MG DOSE (2X325MG) PO PRN ×3 (03:38→15:46)
[2019-06-16 06:00] VITALS: BP 141/83
[2019-06-16] MEDS: SENOKOT S TAB PO SCH (08:54)
[2019-06-16] MEDS: ENOXAPARIN 40 MG/0.4 ML SYRINGE (J1650) SC SCH (08:54)
[2019-06-16] MEDS: BISACODYL 5 MG TAB PO SCH (08:54)
[2019-06-16] MEDS: MULTIVITAMINS/MINERALS THERAP 1 TAB PO SCH (08:55)
[2019-06-16] MEDS: traMADol 50 MG TAB PO SCH (08:56)
[2019-06-16 14:00] VITALS: BP 127/79
--- NOTE | 2019-06-16 18:44 | IPNPDOC ---
Text Note Date of Service The patient was seen on 06/16/19. NOTE S: Pt stable & doing well. No events overnight. He is in good spirits looking forward to discharge. No f/n/v/abd pain/cp/sob. O: General: resting comfy in bed, NAD CV: RRR, normal s1s2 Pulm: CTAB, no w/r/r Abd: soft, NTND, normoactive bowel sounds Extremities: 2+ pulses throughout, no edema or tenderness MSK: strength intact & equal throughout. No muscle atrophy Neuro: no focal deficits A/P: 1. Social living situation: pt previously homeless prior to hospitalization. Housing was fortunately secured. Please see Disposition. 2. Weakness & dizziness: much improved per pt subjectively. Orthostatic VS have been negative. Vitals stable. Possible deconditioning. Cleared PT/OT. 3. Chronic low back pain: continue home tramadol. Pain controlled. 4. Hx alcohol abuse: Last drink 3 weeks ago. No signs of withdrawal. 5. Tobacco use: pt counseled on cessation. DVT ppx: Lovenox sc DISPO: please see prior discharge note from 06/13/19. D/c was delayed for days since he cleared PT/OT and was medically stable for discharge, but refused to leave and appealed the d/c. He is homeless and refused housing options offered by [facility], stating he would not follow the rules that require him to abstain from alcohol. Luckily, [facility] was able to secure housing at [facility] and pt is agreeable to live there until his DDS restarts next month and he can obtain housing again. He as unable to leave yesterday, as it was too last in the day. Plan for d/c today. VS,Fishbone, I+O VS, Fishbone, I+O Vital Signs Date Time Temp Pulse Resp B/P (MAP) Pulse Ox O2 Delivery O2 Flow Rate FiO2 06/16/19 16:17 16 06/16/19 14:00 98.0 81 127/79 (95) 97 I&O- Last 24 Hours up to 6 AM 06/16/19 06:00 Intake Total 620 ml Output Total 1000 ml Balance -380 ml JANELLE AQUINO DO Jun 16, 2019 18:44
== END 2019-06-16 17:05 | disposition home or self-care (01) | DRG 58 ==
LOC: M ED 08:53 → M ED INP 20:22 → M MS4PR 21:52 → M MS5PR 06-08 14:20 → OBSVTOIN 06-09 13:25 → M MS5PR 06-12 14:20
PROVIDERS: ADMIT Internal Medicine; ATTEND Internal Medicine Nephrology
DX: R29.6 Repeated falls (principal); R26.89 Other abnormalities of gait and mobility; E87.6 Hypokalemia; M54.5 Low back pain; R53.1 Weakness; F17.200 Nicotine dependence, unspecified, uncomplicated; F10.10 Alcohol abuse, uncomplicated; R42 Dizziness and giddiness; Z59.0 Homelessness; Z87.81 Personal history of (healed) traumatic fracture; Z96.651 Presence of right artificial knee joint; Z79.899 Other long term (current) drug therapy

== ENCOUNTER → 2019-06-20 | Outpatient (REF) | payer OTHER ==
[~2019-06-20] MED LIST changes: +ACET-683 PO
[2019-06-20 16:33] LABS: BASO # 0.1 10^3/uL (0.0-0.2); BASO % 1.2 % (0.0-1.0); EOS # 0.2 10^3/uL (0.0-0.50); HEMATOCRIT 37.1 % (42.0-52.0); HEMOGLOBIN 10.7 g/dl (13.5-17.5); LYMPH # 2.2 10^3/uL (1.5-4.5); MEAN CORPUSCULAR HEMOGLOBIN 21.6 pg (27.0-33.0); MEAN CORPUSCULAR HGB CONC 28.8 g/dl (32.0-36.5); MEAN CORPUSCULAR VOLUME 74.9 fl (80.0-96.0); MONO # 0.7 10^3/uL (0.0-0.8); MONO % 8.8 % (0.0-5.0); NEUTROPHILS # 4.9 10^3/uL (1.8-7.7); NEUTROPHILS % 60.8 % (36.0-66.0); PLATELET COUNT, AUTOMATED 542 10^3/uL (150-450); RED BLOOD COUNT 4.95 10^6/uL (4.30-6.10); WHITE BLOOD COUNT 8.1 10^3/uL (4.0-10.0)
[2019-06-20 17:48] LABS: ERYTHROCYTE SEDIMENTATION RATE 43 mm/hr (0-20)
== END ==
LOC: M LABDRAW1 14:00
PROVIDERS: ATTEND Physician Assistant Medical
DX: S72.041 Displaced fracture of base of neck of right femur (principal); W18.30XS Fall on same level, unspecified, sequela; Y92.009 Unspecified place in unspecified non-institutional (private) residence as the place of occurrence of the external cause

== ENCOUNTER → 2019-06-27 | Outpatient (CLI) | payer OTHER | LOC: M OUTALCOH 08:03 | PROVIDERS: ATTEND Psychiatry & Neurology Psychiatry | DX: F10.10 Alcohol abuse, uncomplicated (principal) ==

== ENCOUNTER → 2019-07-12 | Outpatient (CLI) | payer OTHER ==
--- NOTE | 2019-07-13 08:06 | REP ---
REASON FOR EXAM: Severe right hip pain times 2 years. After the intravenous administration of 22.0 mCi of technetium-99m MDP a triple phase bone scan of the hips was obtained. The blood flow scintiscan shows no abnormal increased or decreased radionuclide accumulation in either hip or pelvis. 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 Slightly increased radionuclide accumulation is seen in the right acetabular region. Delayed imaging shows further increase in the radionuclide accumulation in the right acetabular region. Subtle and somewhat more diffuse increased radionuclide accumulation is seen along the shaft of the right hip prosthesis. IMPRESSION: Two of the three components of the triple phase bone scan show increased radionuclide accumulation adjacent to the right hip prosthesis. This could be secondary to early signs of loosening. Since no abnormal increased radionuclide accumulation is seen on the flow portion of the triple phase scan the diagnosis cannot be made with certainty, but is only presumptive at this time. There is no evidence of infection. Correlate clinically with appropriate followup. Electronically Signed by Max Beaulieu DO 07/13/2019 09:50 A
== END ==
LOC: M RAD 09:42
PROVIDERS: ATTEND Physician Assistant Medical
DX: M97.11XD Periprosthetic fracture around internal prosthetic right knee joint, subsequent encounter (principal)
CPT/HCPCS: 78315; A9503

== ENCOUNTER 2019-07-28 10:00 | Outpatient (RCR) | payer OTHER | END 2019-07-30 | LOC: M OUTALCOH 10:00 | PROVIDERS: ATTEND Psychiatry & Neurology Psychiatry | DX: F10.20 Alcohol dependence, uncomplicated (principal); Z72.0 Tobacco use ==

== ENCOUNTER 2019-08-26 14:00 | Outpatient (RCR) | payer OTHER | END 2019-08-29 | LOC: M OUTALCOH 14:00 | PROVIDERS: ATTEND Psychiatry & Neurology Psychiatry | DX: F10.20 Alcohol dependence, uncomplicated (principal); Z72.0 Tobacco use ==

== ENCOUNTER 2019-09-28 16:00 | Outpatient (RCR) | payer OTHER | END 2019-09-29 | LOC: M OUTALCOH 16:00 | PROVIDERS: ATTEND Psychiatry & Neurology Psychiatry | DX: F10.20 Alcohol dependence, uncomplicated (principal); Z72.0 Tobacco use ==

== ENCOUNTER → 2019-09-30 | Outpatient (REF) | payer OTHER ==
[2019-09-30 15:46] LABS: CHOLESTEROL RISK RATIO 5.435 (<5)
== END ==
LOC: M SFHCPLAZ 13:02
PROVIDERS: ATTEND Family Medicine
DX: Z13.220 Encounter for screening for lipoid disorders (principal)

== ENCOUNTER 2019-10-26 11:15 | Outpatient (RCR) | payer OTHER | END 2019-10-29 | LOC: M OUTALCOH 11:15 | PROVIDERS: ATTEND Psychiatry & Neurology Psychiatry | DX: F10.20 Alcohol dependence, uncomplicated (principal); Z72.0 Tobacco use ==

== ENCOUNTER 2019-11-28 16:00 | Outpatient (RCR) | payer OTHER | END 2019-11-29 | LOC: M OUTALCOH 16:00 | PROVIDERS: ATTEND Psychiatry & Neurology Psychiatry | DX: F10.20 Alcohol dependence, uncomplicated (principal); Z72.0 Tobacco use ==

== ENCOUNTER 2019-12-15 10:10 | Outpatient (RCR) | payer OTHER | END 2019-12-30 | LOC: M OUTALCOH 10:10 | PROVIDERS: ATTEND Psychiatry & Neurology Psychiatry | DX: F10.20 Alcohol dependence, uncomplicated (principal); Z72.0 Tobacco use ==

== ENCOUNTER → 2020-01-24 | Outpatient (CLI) | payer OTHER ==
[2020-01-24 12:56] LABS: BASO # 0.1 10^3/uL (0.0-0.2); EOS # 0.3 10^3/uL (0.0-0.5); EOS % 3.3 % (0.0-3.0); HEMATOCRIT 38.6 % (42.0-52.0); HEMOGLOBIN 11.1 g/dl (13.5-17.5); LYMPH % 37.4 % (24.0-44.0); MEAN CORPUSCULAR HEMOGLOBIN 21.6 pg (27.0-33.0); MEAN CORPUSCULAR HGB CONC 28.8 g/dl (32.0-36.5); MONO # 0.7 10^3/uL (0.0-0.8); MONO % 8.3 % (0.0-5.0); NEUTROPHILS % 49.6 % (36.0-66.0); PLATELET COUNT, AUTOMATED 327 10^3/uL (150-450); RED BLOOD COUNT 5.15 10^6/uL (4.30-6.10); WHITE BLOOD COUNT 8.1 10^3/uL (4.0-10.0)
[2020-01-24 13:20] LABS: ALT/SGPT 15 U/L (12-78); BILIRUBIN,DIRECT 0.1 MG/DL (0.0-0.2); BILIRUBIN,TOTAL 0.4 MG/DL (0.2-1.0); BLOOD UREA NITROGEN 12 MG/DL (7-18); CREATININE FOR GFR 0.81 MG/DL (0.70-1.30); FERRITIN 10 NG/ML (26-388); GLOMERULAR FILTRATION RATE > 60.0 (>56); IRON (FE) 28 UG/DL (65-175); PERCENT SATURATION 6.1 % (19.7-50.0); TOTAL IRON BINDING CAPACITY 457 UG/DL (250-450); TOTAL PROTEIN 7.5 GM/DL (6.4-8.2)
[2020-01-24 13:24] LABS: VITAMIN B12 LEVEL 303 PG/ML
[2020-01-24 13:25] LABS: FOLATE 6.8 NG/ML
== END ==
LOC: M PLALAB 09:57
PROVIDERS: ATTEND Internal Medicine Gastroenterology
DX: D62 Acute posthemorrhagic anemia (principal)